=== PATIENT | female | born 1990 | race Caucasian/White ===

== ENCOUNTER 2022-09-29 04:20 | Inpatient (IN) | payer OTHER, MEDICAID, SELFPAY ==
[2022-09-29] VITALS (14 sets, daily range): BP systolic 110–146; BP diastolic 61–95; PULSE 57–108; RESP 6–35; TEMP 36.4–37.1; O2SAT 76–100; BMI 17.2
--- NOTE | 2022-09-29 | ECG_ITS ---
Test Reason : OVERDOSE Blood Pressure : / mmHG Vent. Rate : 094 BPM Atrial Rate : 094 BPM P-R Int : 146 ms QRS Dur : 092 ms QT Int : 340 ms P-R-T Axes : 061 070 018 degrees QTc Int : 425 ms Normal sinus rhythm with sinus arrhythmia Normal ECG No previous ECGs available Referred By: Cisco Carbajal Electronically Signed By:SUZE HOU MD
--- NOTE | ~2022-09-29 | XR_ITS ---
EXAMINATION: XR CHEST CLINICAL INFORMATION: Hypoxia after drug overdose. COMPARISON: None available. TECHNIQUE: Frontal view of the chest was obtained. FINDINGS: EKG wires overlie the chest. Lungs are well-inflated and clear. Trachea is midline in position. No interstitial disease, consolidation or mass. No pleural effusion or pneumothorax. Cardiac silhouette and pulmonary vessels are normal in size. The mediastinum and jarrett have normal contour. The visualized bones, and upper abdomen, are unremarkable. XR/XR chest 1V IMPRESSION: No evidence of pulmonary edema or aspiration pneumonia. No acute cardiopulmonary abnormality.
[2022-09-29 05:02] LABS: MANUAL DIFF FLAG NO
[2022-09-29 05:03] LABS: Basophils Percent Auto 0.4 % (0-2); Eosinophils Absolute Auto 0.1 X10*3/uL (0.0-0.4); Eosinophils Percent Auto 1.5 % (0-4); Hematocrit 38.1 % (37.0-47.0); Hemoglobin 12.5 g/dl (12.0-16.0); Imm Gran Abs Auto 0.02 X10*3/uL (0.00-0.03); Imm Gran Pct Auto 0.2 % (0.0-0.4); Lymphocytes Absolute Auto 3.6 X10*3/uL (1.2-4.9); Lymphocytes Percent Auto 44.6 % (20-40); Mean Corpuscular HGB Conc 32.8 g/dl (31.0-35.0); Mean Corpuscular Hemoglobin 30.8 pg (27.0-33.0); Mean Corpuscular Volume 93.8 fL (80.0-98.0); Mean Platelet Volume 9.8 fL (9.4-12.3); Monocytes Absolute Auto 0.4 X10*3/uL (0.1-1.2); Monocytes Percent Auto 5.4 % (2-11); Neutrophils Absolute Auto 3.9 x10*3/uL (2.0-8.3); Neutrophils Percent Auto 47.9 % (45-73); Platelet Count 196 X10*3/uL (160-400); Red Blood Count 4.06 X10*6/uL (4.20-5.50); Red Cell Distribution Width 12.8 % (11.0-16.0); White Blood Count 8.1 X10*3/uL (4.8-10.8)
[2022-09-29 05:22] LABS: Alanine Aminotransferase 16 U/L (0-31); Albumin Level 4.1 g/dL (3.5-5.0); Alkaline Phosphatase 51 U/L (39-117); Anion Gap 13 (12-20); Aspartate Amino Transferase 22 U/L (5-31); Bilirubin Total < 0.2 mg/dL (0.0-1.0); Blood Urea Nitrogen 12 mg/dL (9-16); Calcium 7.8 mg/dL (8.4-10.2); Carbon Dioxide 23 mmol/L (22-29); Chloride 111 mmol/L (96-108); Creatinine Clr Calc Pharmacy 75.5; Estimated Glomerular Filt Rate > 60; Ethanol 159 mg/dL; Glucose Random 111 mg/dL (60-115); Potassium 4.2 mmol/L (3.3-5.1); Sodium 143 mmol/L (135-145); Total Protein 6.1 g/dL (6.5-8.0)
[2022-09-29] MEDS: Naloxone HCl Nasal 4 MG SPRAY NOSTRILALT (07:10)
--- NOTE | 2022-09-29 07:10 | PC.NURSE ---
pt was found in the stretcher in room 22h, unresponsive, cyanotic and finger nail blue and shallow breaking at about 6 per min, pt given narcan 4mg intra nasally and moved to room 4, pt started to come around, and waking up. pt reports not taking anything additional then what she took prior to arrival to the ed, sniffed a bundle of heroin and was drinking alcohol. pt reports that she still wants to hill herself, sitter in place. zofran given because pt is vomiting from the narcan
--- NOTE | 2022-09-29 07:11 | PC.NURSE ---
Late entry: Pt. brought in by EMS after reported OD on fenanyl. Pt. changed over and 1:1 at bedside. Pt. vomited a moderate amount. Pt. ambulated with assist to bathroom and attempted to urinate, however, was unable to. Pt. back to stretcher and lying in bed asleep with continued 1:1.
--- NOTE | 2022-09-29 07:13 | ED.GENADULT ---
HPI - General Adult General Chief complaint: Psychiatric Symptoms Stated complaint: FOUND UNRESP IN CAR,OD,NARCAN GIVEN W/GOOD RESULT Source: RN notes reviewed and other (nurses) Mode of arrival: ambulatory Limitations: altered mental status History of Present Illness HPI narrative: Pulled out of a car for fentanyl OD, was in the hallway, hypoxic and cyanotic Onset (ago): hour(s) Severity: severe Relieving factors: none Treatments prior to arrival: none Related Data Allergies Allergy/AdvReac Type Severity Reaction Status Date / Time No Known Allergies Allergy Verified 09/29/22 07:21 Review of Systems Review of Systems: Yes Unobtainable due to mental status [facility] Social History Social History Alcohol intake: current Smoked in Last 30 Days: No Use of substances other than those prescribed or required for medical reasons: Yes Substance Use Type: Heroin Advance Directives: No Advance Directives Information Provided: No Physical Exam ED Vital Signs: Vital Signs - 24 hr 09/29/22 04:32 09/29/22 07:27 09/29/22 08:28 Temperature 97.6 F Pulse Rate 86 108 H 75 Respiratory Rate 18 8 L 9 L Blood Pressure 129/85 122/84 126/95 H Pulse Oximetry 97 100 97 Oxygen Delivery Method Room Air Nasal Cannula Room Air Oxygen Flow Rate 10 09/29/22 08:48 09/29/22 09:29 09/29/22 10:46 Temperature Pulse Rate 91 Respiratory Rate 6 L 8 L 10 L Blood Pressure 127/93 H 146/93 H Pulse Oximetry 99 76 L 100 Oxygen Delivery Method Room Air Room Air Room Air Oxygen Flow Rate 40 09/29/22 12:34 09/29/22 15:08 Temperature Pulse Rate 62 57 Respiratory Rate 8 L 16 Blood Pressure 126/90 H 132/91 H Pulse Oximetry 98 99 Oxygen Delivery Method Room Air Room Air Oxygen Flow Rate BMI result Body Mass Index 17.2 Const Other: unresponsive, cyanotic pinpoint pupils Limitations: altered mental status HENMT Head: Yes normal to inspection Ears: external ears normal General nose exam: Normal external nose present Mouth: Normal oral and palatal mucosa present and oropharynx normal Throat: Yes posterior oropharynx normal Eyes Other: pin point pupils Neck Neck: Yes normal visual inspection Chest Chest palpation & inspection: normal inspection of the chest Resp Other: decreased ventilations, but clear lungs Cardio Jugular venous distension: no JVD Rate: regular rate Rhythm: regular rhythm Heart sounds: S1 normal heart sound present and S2 normal heart sound present GI Inspection: Yes normal to inspection Palpation (GI): Soft to palpation, nontender and No hepatosplenomegaly present Auscultation: normal bowel sounds General: Yes no CVA tenderness Back/Spine/Pelvis Back: no CVA tenderness Skin General skin exam: no rashes or lesions noted Neuro Other: unrsponsive pin point pupils Extrem General: Yes normal to inspection Psych Appearance: grossly normal Course Reevaluation(s) Reevaluation #1: patient received intranasal narcan by nursing and now woke up Time: 07:21 Reevaluation #2: I spent 40 minutes of critical care, with interventions, assessments, speaking to patient, consultants, and family. Time: 13:09 Reevaluation #3: Found unresponsive hypoxic 30's received 12 mg of intranasal narcan and is now awake and alert Medications Administered Discontinued Medications Generic Name Dose Route Start Last Admin Trade Name Xuan PRN Reason Stop Dose Admin Naloxone HCl 4 mg 09/29/22 08:20 09/29/22 07:10 Naloxone Hcl Nasal 4 Mg Eola NOSTRILALT 09/29/22 08:21 4 mg ONCE ONE Administration Naloxone HCl 1 mg 09/29/22 08:45 09/29/22 08:48 Naloxone Hcl 2 Mg/2 Ml Syringe IVPUSH 09/29/22 08:46 1 mg ONCE ONE Administration Naloxone HCl 1 mg 09/29/22 10:44 09/29/22 10:42 Naloxone Hcl 2 Mg/2 Ml Syringe IVPUSH 09/29/22 10:45 1 mg ONCE ONE Administration Naloxone HCl 1 mg 09/29/22 13:00 09/29/22 13:04 Naloxone Hcl 2 Mg/2 Ml Syringe IVPUSH 09/29/22 13:01 1 mg ONCE ONE Administration Ondansetron HCl 4 mg 09/29/22 07:26 09/29/22 07:28 Ondansetron Hcl 4 Mg/2 Ml Vial IVPUSH 09/29/22 07:27 4 mg ONCE ONE Administration Ondansetron HCl 4 mg 09/29/22 08:56 09/29/22 09:09 Ondansetron Hcl 4 Mg/2 Ml Vial IVPUSH 09/29/22 08:57 4 mg ONCE ONE Administration Medical Decision Making Differential Diagnosis Differential Diagnoses: The differential diagnosis associated with the presentation includes (opiate overdose, suicidal ideation, depression) Admission/Observation Consideration of admission/observation: Escalation of care including admission/observation considered (medical and psychiatric admission was considered upon arrival) Consult Healthcare Provider Management of the patient was discussed with: [employer]ivatives Trader (Discussed with Dr. Frazier ICU about narcan drip) Lab Data MDM Lab Attestation statement: I reviewed the patient's lab results. 09/29/22 04:58 09/29/22 04:58 Labs: Lab Results 09/29/22 09/29/22 09/29/22 Range/Units 04:58 04:58 13:08 WBC 8.1 (4.8-10.8) X10*3/uL RBC 4.06 L (4.20-5.50) X10*6/uL Hgb 12.5 (12.0-16.0) g/dl Hct 38.1 (37.0-47.0) % MCV 93.8 (80.0-98.0) fL MCH 30.8 (27.0-33.0) pg MCHC 32.8 (31.0-35.0) g/dl RDW 12.8 (11.0-16.0) % Plt Count 196 (160-400) X10*3/uL MPV 9.8 (9.4-12.3) fL Immature Gran % (Auto) 0.2 (0.0-0.4) % Neut % (Auto) 47.9 (45-73) % Lymph % (Auto) 44.6 H (20-40) % [place] % (Auto) 5.4 (2-11) % Eos % (Auto) 1.5 (0-4) % Baso % (Auto) 0.4 (0-2) % Lymph # (Auto) 3.6 (1.2-4.9) X10*3/uL [place] # (Auto) 0.4 (0.1-1.2) X10*3/uL Eos # (Auto) 0.1 (0.0-0.4) X10*3/uL Baso # (Auto) 0.0 (0.0-0.2) X10*3/uL Abs Immat Gran (auto) 0.02 (0.00-0.03) X10*3/uL Absolute Neuts (auto) 3.9 (2.0-8.3) x10*3/uL Absolute Nucleated RBC 0.000 (0.0-0.012) X10*3/uL Nucleated RBC % (auto) 0.0 (0.0-0.2) /100WBC Sodium 143 (135-145) mmol/L Potassium 4.2 (3.3-5.1) mmol/L Chloride 111 H (96-108) mmol/L Carbon Dioxide 23 (22-29) mmol/L Anion Gap 13 (12-20) BUN 12 (9-16) mg/dL Creatinine 0.78 (0.5-1.4) mg/dL Estim Creat Clear Calc 75.5 Estimated GFR > 60 Random Glucose 111 (60-115) mg/dL Calcium 7.8 L (8.4-10.2) mg/dL Total Bilirubin < 0.2 (0.0-1.0) mg/dL AST 22 (5-31) U/L ALT 16 (0-31) U/L Alkaline Phosphatase 51 (39-117) U/L Total Protein 6.1 L (6.5-8.0) g/dL Albumin 4.1 (3.5-5.0) g/dL Urine Opiates Screen POSITIVE H (Not Detect) Urine Fentanyl Screen POSITIVE H (Not Detect) Ur Barbiturates Screen Not Detected (Not Detect) Ur Phencyclidine Scrn Not Detected (Not Detect) Ur Amphetamines Screen Not Detected (Not Detect) U Benzodiazepines Scrn Not Detected (Not Detect) Urine Cocaine Screen POSITIVE H (Not Detect) U Marijuana (THC) Screen POSITIVE H (Not Detect) Ethyl Alcohol 159 mg/dL COVID-19 (SRAVAN) (Negative) COVID-19 Clin Com 09/29/22 Range/Units 15:22 WBC (4.8-10.8) X10*3/uL RBC (4.20-5.50) X10*6/uL Hgb (12.0-16.0) g/dl Hct (37.0-47.0) % MCV (80.0-98.0) fL MCH (27.0-33.0) pg MCHC (31.0-35.0) g/dl RDW (11.0-16.0) % Plt Count (160-400) X10*3/uL MPV (9.4-12.3) fL Immature Gran % (Auto) (0.0-0.4) % Neut % (Auto) (45-73) % Lymph % (Auto) (20-40) % [place] % (Auto) (2-11) % Eos % (Auto) (0-4) % Baso % (Auto) (0-2) % Lymph # (Auto) (1.2-4.9) X10*3/uL [place] # (Auto) (0.1-1.2) X10*3/uL Eos # (Auto) (0.0-0.4) X10*3/uL Baso # (Auto) (0.0-0.2) X10*3/uL Abs Immat Gran (auto) (0.00-0.03) X10*3/uL Absolute Neuts (auto) (2.0-8.3) x10*3/uL Absolute Nucleated RBC (0.0-0.012) X10*3/uL Nucleated RBC % (auto) (0.0-0.2) /100WBC Sodium (135-145) mmol/L Potassium (3.3-5.1) mmol/L Chloride (96-108) mmol/L Carbon Dioxide (22-29) mmol/L Anion Gap (12-20) BUN (9-16) mg/dL Creatinine (0.5-1.4) mg/dL Estim Creat Clear Calc Estimated GFR Random Glucose (60-115) mg/dL Calcium (8.4-10.2) mg/dL Total Bilirubin (0.0-1.0) mg/dL AST (5-31) U/L ALT (0-31) U/L Alkaline Phosphatase (39-117) U/L Total Protein (6.5-8.0) g/dL Albumin (3.5-5.0) g/dL Urine Opiates Screen (Not Detect) Urine Fentanyl Screen (Not Detect) Ur Barbiturates Screen (Not Detect) Ur Phencyclidine Scrn (Not Detect) Ur Amphetamines Screen (Not Detect) U Benzodiazepines Scrn (Not Detect) Urine Cocaine Screen (Not Detect) U Marijuana (THC) Screen (Not Detect) Ethyl Alcohol mg/dL COVID-19 (SRAVAN) Negative (Negative) COVID-19 Clin Com See Note Independent Interpretation I performed an independent interpretation of an: Plain X-Ray (no infiltrate) Discharge Plan Discharge Clinical Impression: Intentional opiate overdose, Suicidal ideation Patient Disposition: Admitted As Inpatient Interventions: Mono-Suicide Risk Severity Scale Last Done: 09/29/22 15:00
[2022-09-29] MEDS: ondansetron HCL 4 MG/2 ML VIAL IVPUSH ×3 (07:28→19:33)
--- NOTE | 2022-09-29 08:27 | PC.NURSE ---
pt's oxygen level dropped again and respirations dropped down to 9, pt becoming very drowsy but is able to stay awake talking to the pct/sitter at bedside
[2022-09-29] MEDS: Naloxone HCl 2 MG/2 ML SYRINGE 1 MG IVPUSH ×3 (08:48→13:04)
--- NOTE | 2022-09-29 08:48 | PC.NURSE ---
pt unable to stay awake, respirations continuos on lowering, now at 6respirations per min, cap at 40
--- NOTE | 2022-09-29 09:29 | PC.NURSE ---
pt oxygen level dropped again to 76% on room air pt is prety awake at this time, respirations at about 6-8, hr rate at 97 normal sinus
--- NOTE | 2022-09-29 10:54 | PC.NURSE ---
Patient falling asleep while speaking with staff, also during these times patient's breath is slowing. Provider made aware and a dose of Narcan was ordered and given. Patient is now sitting on stretcher with staff at bedside.
--- NOTE | 2022-09-29 10:59 | PC.NURSE ---
Patient asking for staff to just let me patient says that she doesn't feel that when she gets out of the hospital that she will be able to give herself the life that she wants to live. This nurse spoke with the patient about these feelings and this seems to have helped the patient. She states that she has never taken a whole bundle in her life never mind all in one sitting stating I must really have been trying to kill myself. Patient maintaining consciousness at this time, calm and cooperative with staff.
--- NOTE | 2022-09-29 12:42 | PC.NURSE ---
pt still unable to voide, this rn performed a bladder scan because this pt has not voided since 0700 when this rn took over on the pt's care, bladder scan showed 808 ml, md aware and plan to straight cath the pt pt is still very drowsy at times but easily arousable to voice command, respirations continuos on varying from 12-6, bp holding
--- NOTE | 2022-09-29 13:10 | PC.NURSE ---
Patient straight cathed for 700ml. during the catherization patient became unconscious and desated. Oxygen increased for patient and patient was sat up. Narcan ordered and administered. Patient sitting on stretcher at this time with staff at bedside.
[2022-09-29 13:34] LABS: Amphetamine Screen Urine Not Detected (Not Detect); Barbiturates, Urine Not Detected (Not Detect); Benzodiazepines Screen Urine Not Detected (Not Detect); Cannabinoid Screen Urine POSITIVE (Not Detect); Cocaine Screen Urine POSITIVE (Not Detect); Fentanyl, urine POSITIVE (Not Detect); Opiate Screen Urine POSITIVE (Not Detect); Phencyclidine Screen Urine Not Detected (Not Detect)
--- NOTE | 2022-09-29 15:10 | PC.NURSE ---
pt finally is medically stable, respirations improved and stable holding at 14-18 and pt is staying awake without being prompted to do so, vs stable report given to hollie ortega and pt moved to n
--- NOTE | 2022-09-29 15:12 | PC.NURSE ---
assumed care of pt at 1500, pt reporting intentional overdose, but denies any SI/HI at this time.
[2022-09-29 15:40] LABS: COVID-19 Test Negative (Negative); IDNOW Serial# BCCEAD1C
--- NOTE | 2022-09-29 16:24 | PC.NURSE ---
pt sleeping in behavioral pod, on safety check pt was found unresponsive, lips blue tinged. HR 119, 21% O2 on monitor. IN narcan administered by provider, pt moved back into main ED. pt transferred back into main ED.
--- NOTE | 2022-09-29 16:39 | PC.NURSE ---
Patient became unresponsive in pod. Patient placed on stretcher and given O2, nasal Narcan and brought to room 4. Narcan effective patient on stretcher shiver, given warm blanket. Patient having dry heaves; provider made aware and no new orders at this time. Patient is sinus tachy on the monitor, patient is alert and speaking with this nurse.
--- NOTE | 2022-09-29 16:42 | MHC.CARE ---
CARE team attempted to meet, however she became unresponsive and code was called, additional Jarad given. Pt to be medically admitted per ED physician Dr. Carbajal.
--- NOTE | 2022-09-29 17:10 | PM.CCHP ---
History of Present Illness Date of Service: 09/29/22 Chief Complaint: intentional polysubstance overdose 32-year-old lady admitted on 09/29/2022 with intentional polysubstance overdose now requiring Narcan drip to maintain normal oximetry. Review of Systems Constitutional: Constitutional: Denies daytime sleepiness, Denies excessive sweating, Denies fatigue, Denies fever(s), Denies lethargy, Denies malaise, Denies night sweats, Denies snoring and Denies weight loss Eyes: Eyes: Denies blurry vision and Denies itchy eyes ENT: Denies nasal congestion, Denies post nasal drip, Denies sinus pain, Denies sinus pressure and Denies other ( Thrush) Cardiovascular: Cardiovascular: Denies chest pain, Denies pedal edema, Denies dyspnea, Denies orthopnea and Denies paroxysmal nocturnal dyspnea Respiratory: Respiratory: Denies cough, Denies hemoptysis, Denies excessive phlegm production, Denies dyspnea, Denies snoring and Denies wheezing Gastrointestinal: Gastrointestinal: Denies abdominal pain and Denies heartburn Musculoskeletal: Musculoskeletal: Denies myalgias, Denies arthralgias and Denies joint swelling Integumentary/Breasts: Skin/Breast: Denies rash Neurologic: Denies memory loss and Denies seizure-like activity Psychiatric: Psychiatric: Denies abnormal sleep pattern, Denies anxiety and Denies memory loss Endocrine: Endocrine: Denies excessive sweating, Denies fatigue and Denies heat intolerance Hematologic/Lymphatic: Hematologic/Lymphatic: Denies easy bruising Allergic/Immunologic: Allergic/Immunologic: Denies itchy eyes, Denies seasonal rhinorrhea and Denies wheezing PMFSH Social History Social History Alcohol intake: current Smoked in Last 30 Days: No Use of substances other than those prescribed or required for medical reasons: Yes Substance Use Type: Heroin Advance Directives: No Advance Directives Information Provided: No Meds Allergies Allergy/AdvReac Type Severity Reaction Status Date / Time No Known Allergies Allergy Verified 09/29/22 07:21 Active Medications: Current Medications Enoxaparin Sodium (Enoxaparin Sodium 40 Mg/0.4 Ml Syringe) 40 mg SUBCUT Q24H ADRIEL Naloxone HCl 5 mg/ Dextrose 100 mls @ 40 mls/hr IV .Q2H30M [facility] Home Medications Medication Instructions Recorded Confirmed Last Taken Type naloxone 4 mg/actuation nasal spray 1 spray intranasal DAILY 09/29/22 09/29/22 Unknown History Physical Exam Vital Signs: Vital Signs: Last Vital Signs Temp 97.6 F 09/29/22 04:32 Pulse 57 09/29/22 15:08 Resp 16 09/29/22 15:08 BP 132/91 H 09/29/22 15:08 Pulse Ox 99 09/29/22 15:08 O2 Del Method 09/29/22 15:08 O2 Flow Rate 40 09/29/22 08:48 BMI result Body Mass Index 17.2 Const: General: no acute distress and lethargic ( Intermittently anxious) Nutritional Appearance: not obese Orientation/consciousness: lethargic ( Intermittently anxious) and Other orientation findings ( oriented) HEENT: Head: Yes atraumatic Mouth: no other ( thrush) Throat: No postnasal drainage Eyes: General: appearance normal, both eyes and all related structures Sclerae: sclerae normal EOM: EOMs intact bilaterally Neck: Neck: Yes supple Lymphatic: no lymphadenopathy noted Resp: Effort & Inspection: normal respiratory effort and no use of accessory muscles Auscultation: clear to auscultation bilaterally Cardio: Rate: regular rate Rhythm: regular rhythm Heart sounds: no gallops, no murmurs and no rubs GI: Palpation (GI): Soft to palpation and Other GI palpation findings present ( nontender) Skin: General skin exam: other ( warm) Rashes: no rashes Extrem: General: No clubbing, No cyanosis and No edema Results Labs 09/29/22 04:58 09/29/22 04:58 Labs: Laboratory Results - last 24 hr 09/29/22 09/29/22 09/29/22 04:58 04:58 13:08 MCV 93.8 MCH 30.8 MCHC 32.8 RDW 12.8 Plt Count 196 MPV 9.8 Immature Gran % (Auto) 0.2 Neut % (Auto) 47.9 Lymph % (Auto) 44.6 H [place] % (Auto) 5.4 Eos % (Auto) 1.5 Baso % (Auto) 0.4 Lymph # (Auto) 3.6 [place] # (Auto) 0.4 Eos # (Auto) 0.1 Baso # (Auto) 0.0 Abs Immat Gran (auto) 0.02 Absolute Neuts (auto) 3.9 Absolute Nucleated RBC 0.000 Nucleated RBC % (auto) 0.0 Anion Gap 13 Estim Creat Clear Calc 75.5 Estimated GFR > 60 Random Glucose 111 Calcium 7.8 L Total Bilirubin < 0.2 AST 22 ALT 16 Alkaline Phosphatase 51 Total Protein 6.1 L Albumin 4.1 Urine Opiates Screen POSITIVE H Urine Fentanyl Screen POSITIVE H Ur Barbiturates Screen Not Detected Ur Phencyclidine Scrn Not Detected Ur Amphetamines Screen Not Detected U Benzodiazepines Scrn Not Detected Urine Cocaine Screen POSITIVE H U Marijuana (THC) Screen POSITIVE H Ethyl Alcohol 159 COVID-19 (SRAVAN) COVID-19 Clin Com 09/29/22 15:22 MCV MCH MCHC RDW Plt Count MPV Immature Gran % (Auto) Neut % (Auto) Lymph % (Auto) [place] % (Auto) Eos % (Auto) Baso % (Auto) Lymph # (Auto) [place] # (Auto) Eos # (Auto) Baso # (Auto) Abs Immat Gran (auto) Absolute Neuts (auto) Absolute Nucleated RBC Nucleated RBC % (auto) Anion Gap Estim Creat Clear Calc Estimated GFR Random Glucose Calcium Total Bilirubin AST ALT Alkaline Phosphatase Total Protein Albumin Urine Opiates Screen Urine Fentanyl Screen Ur Barbiturates Screen Ur Phencyclidine Scrn Ur Amphetamines Screen U Benzodiazepines Scrn Urine Cocaine Screen U Marijuana (THC) Screen Ethyl Alcohol COVID-19 (SRAVAN) Negative COVID-19 Clin Com See Note Imaging Radiologist's Impressions: Impressions Chest X-Ray 09/29/22 09:42 IMPRESSION: No evidence of pulmonary edema or aspiration pneumonia. No acute cardiopulmonary abnormality. Assessment and Plan (1) Polysubstance overdose: Status: Acute (2) Intentional opiate overdose: Status: Acute (3) Suicidal ideation: Status: Acute Plan Assessment: 32-year-old lady admitted with intentional polysubstance overdose now requiring narcan drip and monitoring in the intensive care unit. Plan: Neuro: Narcan drip, titrate off as tolerated. Monitor respiratory status. Cardiac: No acute issues. Pulmonary: No acute issues. Renal: No acute issues. Endo: No acute issues. GI: No acute issues. ID: No acute issues Heme/Onc: No acute issues. Psych: Three cell ideation, one-to-one observation, psychiatry evaluation after respiratory status stabilizes. Miscellaneous: No acute issues. Prophylaxis: Lovenox Diet: regular Critical care time spent: 30 minutes Time Spent With Patient Time: Total time managing care of this patient today ____ minutes.
[2022-09-29] MEDS: Naloxone HCl 5 MG in Dextrose 5 % 95 ML 40 MG IV (17:55)
[2022-09-29] MEDS: Enoxaparin Sodium 40 MG/0.4 ML SYRINGE SUBCUT (18:39)
--- NOTE | 2022-09-29 19:18 | PC.NURSE ---
PATIENT ADMITTED TO ICU FROM ER, ACCOMPANIED BY RN X2. PATIENT ADMISSION CHECKLIST AND ASSESSMENT COMPLETED. PATIENT POSITIONED SAFELY IN BED WITH CALL REBOLLAR WITHIN REACH.
[2022-09-29] MEDS: Naloxone HCl 5 MG in Dextrose 5 % 95 ML 20 MG IV (20:14)
[2022-09-30] VITALS (15 sets, daily range): BP systolic 100–142; BP diastolic 57–94; PULSE 55–90; RESP 9–20; TEMP 36.8–37.1; O2SAT 96–100; BMI 21.7
--- NOTE | 2022-09-30 02:26 | PC.NURSE ---
Addendum entered by Morris Knapp RN 09/30/22 05:26: NAUSEOUS THIS AM...ZOFRAN 4MG IV GIVEN WITH RELIEF OF NAUSEA Addendum entered by Morris Knapp RN 09/30/22 02:30: PER SHIFT REPORT PATIENT'S BOYFRIEND BRITNI PAREKH NOT ALLOWED TO VISIT PER SECURITY AND PATIENT'S PRIOR REQUEST...NEW CONTACT= BRITNEY IMAN--TELEPHONE # [phone] Original Note: CARE ASSUMED 23;15..REMAINS OFF NARCAN DRIP SINCE 22:30..AWAKE..ALERT..ORIENTED X3..SPEECH CLEAR..REPOSITIONS SELF AD-LITZY IN BED..NSR..NO ECTOPY..BP STABLE..RESPIRATIONS EASY WITH O2 2 L/M..SAO2 98-100%...1:1 SITTER PRESENT D/T PRIOR SI STATEMENTS R/T OVERDOSE..RESTFUL..CALM AND CO-OPERATIVE AT PRESENT
[2022-09-30 05:14] LABS: VBG Base Excess -2.3 mmol/L; VBG HCO3 21 mmol/L (22-26); VBG pCO2 33 mmHg; VBG pH 7.41 (7.32-7.43); VBG pO2 91 mmHg
[2022-09-30] MEDS: ondansetron HCL 4 MG/2 ML VIAL IVPUSH (05:25)
[2022-09-30 05:34] LABS: MANUAL DIFF FLAG NO
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
[2022-09-30 06:01] LABS: Basophils Percent Auto 0.2 % (0-2); Hematocrit 37.2 % (37.0-47.0); Hemoglobin 12.4 g/dl (12.0-16.0); Imm Gran Abs Auto 0.03 X10*3/uL (0.00-0.03); Imm Gran Pct Auto 0.2 % (0.0-0.4); Lymphocytes Absolute Auto 2.1 X10*3/uL (1.2-4.9); Lymphocytes Percent Auto 15.7 % (20-40); Mean Corpuscular HGB Conc 33.3 g/dl (31.0-35.0); Mean Corpuscular Hemoglobin 30.8 pg (27.0-33.0); Mean Corpuscular Volume 92.3 fL (80.0-98.0); Mean Platelet Volume 10.7 fL (9.4-12.3); Monocytes Absolute Auto 0.9 X10*3/uL (0.1-1.2); Monocytes Percent Auto 6.5 % (2-11); Neutrophils Absolute Auto 10.5 x10*3/uL (2.0-8.3); Neutrophils Percent Auto 77.4 % (45-73); Platelet Count 192 X10*3/uL (160-400); Red Blood Count 4.03 X10*6/uL (4.20-5.50); Red Cell Distribution Width 13.1 % (11.0-16.0); White Blood Count 13.6 X10*3/uL (4.8-10.8)
[2022-09-30 06:16] LABS: Alanine Aminotransferase 35 U/L (0-31); Alkaline Phosphatase 49 U/L (39-117); Anion Gap 15 (12-20); Aspartate Amino Transferase 31 U/L (5-31); Bilirubin Total 0.4 mg/dL (0.0-1.0); Blood Urea Nitrogen 13 mg/dL (9-16); Calcium 8.8 mg/dL (8.4-10.2); Carbon Dioxide 22 mmol/L (22-29); Chloride 106 mmol/L (96-108); Estimated Glomerular Filt Rate > 60; Glucose Random 79 mg/dL (60-115); Magnesium 2.1 mg/dL (1.6-2.6); Potassium 3.9 mmol/L (3.3-5.1); Sodium 139 mmol/L (135-145)
[2022-09-30 08:46] LABS: Venous Blood Gas Refer to POC result
--- NOTE | 2022-09-30 09:32 | MHC.RECOVRN ---
Addiction Medicine received consult for opioid use and interest in ATS. Chart reviewed, discussed with CARE Team. Due to intentional overdose, pt must meet with CARE Team to determine dispo. Addiction Medicine consult deferred at this time.
[2022-09-30] MEDS: Calcium Carbonate 750 MG TAB.CHEW PO (09:54)
--- NOTE | 2022-09-30 10:14 | MHC.CM.PN ---
CM MET WITH PT AT BEDSIDE. HAS 1:1 SITTER. PT LIVES IN AN APT WITH S/O, PER PT, WILL RETURN THERE AFTER HOSPITALIZATION. 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 NO HCP BUT WILL CONSIDER DOING ONE WHILE HERE. NO COVID VAX. HAS NEW PCP DR. BROWN, NOT ESTABLISHED YET. DP: HOME, RESUME OUTPATIENT SERVICES WITH [employer]. WILL NEED [facility] FOR TRANSPORT HOME. CM WILL CONTINUE TO FOLLOW.
--- NOTE | 2022-09-30 14:56 | P.PNIM_ITS ---
Subjective Subjective Date of Service: 09/30/22 Interval History: Feels better denies any suicidal thoughts Sitter at bedside No signs of withdrawal no other overnight events Review of Systems Review of Systems: Yes all other systems are reviewed and are negative Physical Exam Vital Signs: Vital Signs: Last Vital Signs Temp 98.2 F 09/30/22 11:59 Pulse 55 09/30/22 11:59 Resp 20 09/30/22 11:59 BP 121/78 09/30/22 11:59 Pulse Ox 97 09/30/22 11:59 O2 Del Method 09/30/22 11:59 O2 Flow Rate 2 09/30/22 03:00 BMI result Body Mass Index 21.7 Const: Other: Constitutional : Awake, interactive, not in distress Neck : Normal inspection, Supple Cardiovascular : RRR, no JVP, no lower extremity edema Respiratory : good bilateral air entry, no crackles, wheezes or rhonchi Gastrointestinal: soft, lax, Normal bowel sounds, Non tender Skin : Warm, Dry Neurological : Alert & oriented x3, No focal deficit Objective Data Active Medications Calcium Carbonate (Calcium Carbonate 750 Mg Tab.Chew) 750 mg PO Q6H PRN PRN Reason: Dyspepsia Last Admin: 09/30/22 09:54 Dose: 750 mg Documented By: PRITI Enoxaparin Sodium (Enoxaparin Sodium 40 Mg/0.4 Ml Syringe) 40 mg SUBCUT Q24H [facility] Last Admin: 09/29/22 18:39 Dose: 40 mg Documented By: SHRAVAN Ondansetron HCl (Ondansetron Hcl 4 Mg/2 Ml Vial) 4 mg IVPUSH Q8H PRN PRN Reason: Nausea Labs 09/30/22 05:10 09/30/22 05:10 Labs: Laboratory Results - last 24 hr 09/29/22 09/30/22 09/30/22 15:22 05:07 05:10 MCV 92.3 MCH 30.8 MCHC 33.3 RDW 13.1 Plt Count 192 MPV 10.7 Immature Gran % (Auto) 0.2 Neut % (Auto) 77.4 H Lymph % (Auto) 15.7 L [place] % (Auto) 6.5 Eos % (Auto) 0.0 Baso % (Auto) 0.2 Lymph # (Auto) 2.1 [place] # (Auto) 0.9 Eos # (Auto) 0.0 Baso # (Auto) 0.0 Abs Immat Gran (auto) 0.03 Absolute Neuts (auto) 10.5 H Absolute Nucleated RBC 0.000 Nucleated RBC % (auto) 0.0 VBG pH 7.41 VBG pCO2 33 VBG pO2 91 VBG HCO3 21 L VBG O2 Saturation 99.0 VBG Base Excess -2.3 Anion Gap Estim Creat Clear Calc Estimated GFR Random Glucose Calcium Phosphorus Magnesium Total Bilirubin AST ALT Alkaline Phosphatase Total Protein Albumin COVID-19 (SRAVAN) Negative COVID-19 Clin Com See Note 09/30/22 05:10 MCV MCH MCHC RDW Plt Count MPV Immature Gran % (Auto) Neut % (Auto) Lymph % (Auto) [place] % (Auto) Eos % (Auto) Baso % (Auto) Lymph # (Auto) [place] # (Auto) Eos # (Auto) Baso # (Auto) Abs Immat Gran (auto) Absolute Neuts (auto) Absolute Nucleated RBC Nucleated RBC % (auto) VBG pH VBG pCO2 VBG pO2 VBG HCO3 VBG O2 Saturation VBG Base Excess Anion Gap 15 Estim Creat Clear Calc 100.0 Estimated GFR > 60 Random Glucose 79 Calcium 8.8 D Phosphorus 3.0 Magnesium 2.1 Total Bilirubin 0.4 AST 31 ALT 35 H Alkaline Phosphatase 49 Total Protein 6.0 L Albumin 4.0 COVID-19 (SRAVAN) COVID-19 Clin Com Assessment and Plan (1) Intentional opiate overdose: Status: Acute (2) Suicidal ideation: Status: Acute Plan A 32 years old lady with PMH of substance abuse presented with overdose with concerns over suicidal thoughts. admitted to ICU for narcan drip. Drug abuse and overdose recovered, Narcan drip DC'd Addiction team following no withdrawal symptoms reported, monitor Suicidal ideation patient denies any ideas at this point waiting Care team eval One-one obs DVT PPx early ambulation Patient needs to stay overnight in hospital pending safe discharge plan and care team eval Time Spent With Patient Time: Total time managing care of this patient today ____ minutes. Quality Stroke Does the patient have a stroke diagnosis?: No VTE Prior VTE?: No VTE Risk Level:: Medical - moderate - high VTE Device Contraindication: Treatment Not Indicated VTE Drug Contraindication: N/A - Med Ordered
[2022-09-30] MEDS: Enoxaparin Sodium 40 MG/0.4 ML SYRINGE SUBCUT (17:41)
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
== END 2022-09-30 23:10 | DRG 817 ==
LOC: HO.ED 16:37 → HO.EDOVER 17:04 → HO.ICU 17:06 → HO.IMC 09-30 09:08
PROVIDERS: Admitting Provider Internal Medicine Pulmonary Disease; Emergency Provider Emergency Medicine; PCP Internal Medicine; Visit Provider Student in an Organized Health Care Education/Training Program
DX: T50.7X2A Poisoning by analeptics and opioid receptor antagonists, intentional self-harm, initial encounter (principal); F10.20 Alcohol dependence, uncomplicated; F19.10 Other psychoactive substance abuse, uncomplicated; F32.A Depression, unspecified; Y90.6 Blood alcohol level of 120-199 mg/100 ml; Z20.822 Contact with and (suspected) exposure to COVID-19; Z87.891 Personal history of nicotine dependence; Z79.899 Other long term (current) drug therapy
CPT/HCPCS: 36415; 71045; 80053; 80307; 82077; 82803; 83735; 84100; 85025; 87635; 93005; 99285; J1650; J2405; S9485

== ENCOUNTER 2022-09-30 22:10 | Inpatient (IN) | payer OTHER, SELFPAY ==
[2022-10-01] MEDS: Acetaminophen 325 MG TABLET 650 MG PO ×2 (01:35→14:49)
[2022-10-01] MEDS: hydrOXYzine HCL 25 MG TABLET PO (01:35)
[2022-10-01] MEDS: traZODone HCL 50 MG TABLET PO ×3 (01:36→21:46)
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
[2022-10-01 08:54] VITALS: BP 123/92; PULSE 77; RESP 16; TEMP 36.4; O2SAT 99
[2022-10-01 08:57] LABS: Alanine Aminotransferase 38 U/L (0-31); Albumin Level 4.2 g/dL (3.5-5.0); Alkaline Phosphatase 51 U/L (39-117); Anion Gap 14 (12-20); Aspartate Amino Transferase 26 U/L (5-31); Bilirubin Total 0.7 mg/dL (0.0-1.0); Blood Urea Nitrogen 16 mg/dL (9-16); Calcium 9.1 mg/dL (8.4-10.2); Carbon Dioxide 29 mmol/L (22-29); Chloride 101 mmol/L (96-108); Cholesterol 204 mg/dL; Estimated Glomerular Filt Rate > 60; Glucose Fasting 97 mg/dL (60-99); HDL Cholesterol 63 mg/dL; LDL Cholesterol Calculated 106 mg/dl; Potassium 3.4 mmol/L (3.3-5.1); Sodium 141 mmol/L (135-145); Total Protein 6.4 g/dL (6.5-8.0); Triglycerides 175 mg/dL
--- NOTE | 2022-10-01 10:37 | MHC.RECOVRN ---
Addiction Medicine received consult for opioid use and interest in ATS. Chart reviewed, discussed with Dr. Kemp. Due to intentional overdose and M5 admission, pt will complete acute detox while at [facility]. ACS to be reconsulted if needed.
[2022-10-01 10:46] LABS: Hematocrit 38.3 % (37.0-47.0); Hemoglobin 13.4 g/dl (12.0-16.0); Mean Corpuscular Hemoglobin 31.5 pg (27.0-33.0); Mean Corpuscular Volume 90.1 fL (80.0-98.0); Mean Platelet Volume 10.2 fL (9.4-12.3); Platelet Count 200 X10*3/uL (160-400); Red Blood Count 4.25 X10*6/uL (4.20-5.50); Red Cell Distribution Width 12.3 % (11.0-16.0); White Blood Count 7.6 X10*3/uL (4.8-10.8)
[2022-10-01 10:56] LABS: Anion Gap 11 (12-20); Blood Urea Nitrogen 15 mg/dL (9-16); Calcium 8.5 mg/dL (8.4-10.2); Carbon Dioxide 28 mmol/L (22-29); Chloride 103 mmol/L (96-108); Estimated Glomerular Filt Rate > 60; Glucose Random 145 mg/dL (60-115); Potassium 3.3 mmol/L (3.3-5.1); Sodium 139 mmol/L (135-145)
--- NOTE | 2022-10-01 11:23 | P.HPPS_ITS ---
HPI Date of Service: 10/01/22 Chief Complaint: SI Sources of Information: patient interviewed, chart reviewed and crisis/core team assessment reviewed HPI Subjective Notes: Chaidez Warning and Conditional Voluntary Narrative: Patient is a 32-year-old female with history of depression, anxiety opioid use disorder and polysubstance abuse who presents for intentional overdose in the face of worsening depression, requiring medical admission and Narcan drip. Patient currently in significant discomfort from withdrawal symptoms and politely asked that discussion be kept short. She explains that depression has gotten much worse this past winter; she reports trying to resist opiates but ended up using daily starting this past June, briefly got sober and on to Suboxone for a while but this did not last. She was carrying her boyfriend's opiates with her, trying to help him limit his use however the combination of her depression at its proximity resulted in relapse. Patient reports that her depression became overwhelming and so she intentionally overdosed on boyfriend's opiates. Patient says she has been limiting her alcohol use to 1 or 2 drinks a day; intermittently uses crack cocaine. Patient says she is currently not suicidal and glad she is alive but feels very vulnerable to relapse and decompensation. Patient is currently ambivalent about whether not to get back on Suboxone. Past Psychiatric History: Patient declined to discuss at this time Medical Evaluation Reviewed: Yes [facility] Medical History (Updated 10/01/22 @ 14:46 by Cj Kemp MD) MDD (major depressive disorder), recurrent episode, severe Opioid use disorder Family History: Deferred; patient declined to discuss at this time Social History: Living with her boyfriend who is dependent on opiates Substance History: Started substance abuse as a teenager; sober for a couple years in her 20s and then sober again for 2 years starting 2019 to 2021 Trauma History: Deferred for now Diagnostics Vital Signs (24Hr): Vital Signs - 24 hr 10/01/22 08:54 Temperature 97.5 F Pulse Rate 77 Respiratory Rate 16 Blood Pressure 123/92 H Pulse Oximetry 99 Oxygen Delivery Method Room Air Labs 10/01/22 10:36 10/01/22 10:36 Labs: Laboratory Results - last 48 hr 10/01/22 10/01/22 10/01/22 08:32 10:36 10:36 WBC 7.6 RBC 4.25 Hgb 13.4 Hct 38.3 MCV 90.1 MCH 31.5 MCHC 35.0 RDW 12.3 Plt Count 200 MPV 10.2 Absolute Nucleated RBC 0.000 Nucleated RBC % (auto) 0.0 Sodium 141 139 Potassium 3.4 3.3 Chloride 101 103 Carbon Dioxide 29 28 Anion Gap 14 11 L BUN 16 15 Creatinine 0.85 0.77 Estim Creat Clear Calc TNP TNP Estimated GFR > 60 > 60 Random Glucose 145 H Fasting Glucose 97 Calcium 9.1 8.5 D Total Bilirubin 0.7 AST 26 ALT 38 H Alkaline Phosphatase 51 Total Protein 6.4 L Albumin 4.2 Triglycerides 175 Cholesterol 204 LDL Cholesterol, Calc 106 HDL Cholesterol 63 Meds/Allergies Meds Home Medications Medication Instructions Recorded Confirmed Type naloxone 4 mg/actuation nasal spray 1 spray intranasal DAILY 09/29/22 09/29/22 History Allergies Allergies Allergy/AdvReac Type Severity Reaction Status Date / Time No Known Allergies Allergy Verified 09/29/22 07:21 Mental Status Exam Mental Status Exam Narrative: Pt is alert and oriented; behavior is polite, cooperative, in physical discomfort from opiate withdrawal and calm; dressed in hospital attire with unkempt hair; mood is described as depressed and affect congruent, tearful, downcast; eye contact limited; Speech is normal rate, volume and prosody and not pressured; psychomotor retardation present; thought process is organized and goal directed; Thought content is on dealing with depression, withdrawal; otherwise pertinent to relevant topics and without any delusional content, paranoid ideations or grandiosity; denies any SI/HI. There is no evidence of perceptual disturbance. Patients insight and judgment are impaired Assessment & Plan Assessment & Plan (1) MDD (major depressive disorder), recurrent episode, severe: Status: Acute Code(s): F33.2 - Major depressive disorder, recurrent severe without psychotic features (2) Opioid use disorder: Status: Acute Code(s): F11.90 - Opioid use, unspecified, uncomplicated Plan Patient is a 32-year-old female with history of depression, anxiety opioid use disorder and polysubstance abuse who presents for intentional overdose in the face of worsening depression, requiring medical admission and Narcan drip. Interaction kept short since patient was in significant discomfort from opiate withdrawal. She is currently ambivalent about whether not to get on Suboxone as a maintenance medication. Agrees to comfort measures for now. Will readdress psychiatric history and further assess current episode once patient is more able to talk. Plan: CV Q 15 minute checks Start comfort medications (clonidine, Flexeril, Bentyl, Imodium) Start gabapentin 300 mg t.i.d. for help with withdrawal Added Suboxone 2/0.5 mg t.i.d. p.r.n. for withdrawal symptoms (may take doses within 20 minutes of each other) Reassess when patient is in less discomfort Patient educated on: diagnosis, medication risk/benefits, substance abuse and therapeutic strategies Informed Consent: understands Reason for continued inpatient stay Substantial Risk for: harm to self and rapid decompensation Statement Statement: I have reviewed the history and physical and performed a pertinent examination on my patient. No changes have occurred unless specified. If the History and Physical was not performed prior to admission, the Hospitalist's service will be consulted for completing the admission physical. Time Spent With Patient Time: Total time managing care of this patient today ____ minutes.
[2022-10-01] MEDS: cloNIDine HCL 0.1 MG TABLET PO (14:48)
[2022-10-01] MEDS: Gabapentin 300 MG CAPSULE PO ×3 (14:49→20:30)
[2022-10-01 18:11] LABS: Appearance Urine Clear; Color Urine Yellow; Glucose Urine UA Negative (Negative); Leukocyte Esterase Urine Moderate (2+) (Negative); Nitrite Urine Negative (Negative); PH 8.5 (5.0-9.0); Specific Gravity - Urine <= 1.005 (1.005-1.025); UMIC TRIGGER UACC YES; Urine Blood Negative (Negative); Urine Ketones Negative (Negative); Urine Protein Negative (Neg-Trace)
[2022-10-01 18:14] LABS: Bacteria Urine None Seen (None Seen); Hyaline Casts Urine 0-2 /LPF (0-2); RBC Urine 0-2 /HPF (0-2); Squamous Epithelial Cell Urine 0-2 /HPF (0-2); UACC Culture Trigger YES
[2022-10-02] MEDS: Acetaminophen 325 MG TABLET 650 MG PO ×2 (04:41→19:40)
[2022-10-02] MEDS: hydrOXYzine HCL 25 MG TABLET PO (04:42)
[2022-10-02] MEDS: cloNIDine HCL 0.1 MG TABLET PO (04:42)
[2022-10-02] MEDS: Gabapentin 300 MG CAPSULE PO ×3 (07:53→19:39)
[2022-10-02] MEDS: Cyclobenzaprine HCl 10 MG TABLET PO (08:24)
[2022-10-02 08:28] VITALS: BP 109/59; PULSE 73; RESP 16; TEMP 36.3; O2SAT 98
--- NOTE | 2022-10-02 09:48 | P.PNPSI_ITS ---
Subjective Subjective Date of Service: 10/02/22 Reason For Visit: SI Interim History: met with patient; discussed with team Patient feeling a little better and withdrawal symptoms waning a bit. Patient fully engaged, cooperative and shared much about her history. Patient has several incidents of childhood trauma as well as some adult incidences and has ongoing PTSD including flashbacks, hypervigilance, easily startled, struggles with trust and history of nightmares. Patient also endorses what sound like manic episodes that can last anywhere from 2 days every few months to episodes the last 2 weeks which occur about once a year and include decreased need for sleep, hyperactivity, talking more, increased confidence, risky behaviors including hitch hiking, relapse with substance abuse, increased libido, increased spending... All which is followed by depressive episodes which can sometimes be severe for couple days and interfere with going to work. Patient had 1 episode back in 2019 where she ended up in a stolen car, and another state, worried about a [place] invasion... this episode was fueled by substance abuse and patient blacked out for about 36 hours; however patient is not sure if the manic episode started 1st and then she abused substances or if this was strictly due to street drugs. Patient reports family history of bipolar disorder through her maternal aunt and maternal cousins. Patient has never had medication trials; discussed mood stabilizers, risks and side effects and patient agrees to starting Lamictal. Also discussed history of substance abuse and alcohol abuse seems to be the door way to relapsing with heroin or cocaine. Patient does not want to get on Suboxone, not wanting to be addicted to anything, however would like to get on naltrexone/Vivitrol which she has been on before. Patient's plan is to go live at her mother's after dis charge; her mother does struggle with alcoholism and patient knows that it will be triggering however she feels it is the safer option. Discussed role of therapy and patient is eager to engage; she has tried other therapist in the past which has not worked out however patient says she wants to keep trying feels a strong need to talk about and process her history of trauma. psych hx: Last hospitalization 2019 for depression 1 suicide attempt in her 20s No medication trials Mental Status Exam Mental Status Exam Narrative: Pt is alert and oriented; behavior is polite, cooperative, in physical discomfort from opiate withdrawal but less so; dressed in hospital attire with unkempt hair; mood is described as depressed and affect congruent, tearful, but more engaged; eye contact appropriate; Speech is normal rate, volume and prosody and not pressured; some psychomotor retardation present but less; thought process is organized and goal directed; Thought content is on dealing with depression, withdrawal; otherwise pertinent to relevant topics and without any delusional content, paranoid ideations or grandiosity; denies any SI/HI. There is no evidence of perceptual disturbance. Patients insight and judgment are impaired but improved. Diagnostics Vital Signs (24Hr): Vital Signs - 24 hr 10/02/22 08:28 Temperature 97.4 F Pulse Rate 73 Respiratory Rate 16 Blood Pressure 109/59 L Pulse Oximetry 98 Oxygen Delivery Method Room Air Labs 10/01/22 10:36 10/01/22 10:36 Labs: Laboratory Results - last 48 hr 10/01/22 10/01/22 10/01/22 08:32 10:36 10:36 WBC 7.6 RBC 4.25 Hgb 13.4 Hct 38.3 MCV 90.1 MCH 31.5 MCHC 35.0 RDW 12.3 Plt Count 200 MPV 10.2 Absolute Nucleated RBC 0.000 Nucleated RBC % (auto) 0.0 Sodium 141 139 Potassium 3.4 3.3 Chloride 101 103 Carbon Dioxide 29 28 Anion Gap 14 11 L BUN 16 15 Creatinine 0.85 0.77 Estim Creat Clear Calc TNP TNP Estimated GFR > 60 > 60 Random Glucose 145 H Fasting Glucose 97 Calcium 9.1 8.5 D Total Bilirubin 0.7 AST 26 ALT 38 H Alkaline Phosphatase 51 Total Protein 6.4 L Albumin 4.2 Triglycerides 175 Cholesterol 204 LDL Cholesterol, Calc 106 HDL Cholesterol 63 Urine Color Urine Appearance Urine pH Ur Specific [place] Urine Protein Urine Glucose (UA) Urine Ketones Urine Blood Urine Nitrite Ur Leukocyte Esterase Urine RBC Urine WBC Urine WBC Clumps Ur Squamous Epith Cells Ur Transition Epith Cell Ur Renal Epithelial Cell Calcium Oxalate Crystal Leucine Crystals Cystine Crystals Tyrosine Crystals Other Crystals Urine Bacteria Urine Parasites Bilirubin Casts Epithelial Casts Fatty Casts Hyaline Casts Granular Casts Waxy Casts Broad Casts RBC Casts WBC Casts Other Casts Urine Trichomonas Urine Yeast 10/01/22 10/01/22 18:00 18:00 WBC RBC Hgb Hct MCV MCH MCHC RDW Plt Count MPV Absolute Nucleated RBC Nucleated RBC % (auto) Sodium Potassium Chloride Carbon Dioxide Anion Gap BUN Creatinine Estim Creat Clear Calc Estimated GFR Random Glucose Fasting Glucose Calcium Total Bilirubin AST ALT Alkaline Phosphatase Total Protein Albumin Triglycerides Cholesterol LDL Cholesterol, Calc HDL Cholesterol Urine Color Yellow Cancelled Urine Appearance Clear Cancelled Urine pH 8.5 Cancelled Ur Specific [place] <= 1.005 Cancelled Urine Protein Negative Cancelled Urine Glucose (UA) Negative Cancelled Urine Ketones Negative Cancelled Urine Blood Negative Cancelled Urine Nitrite Negative Cancelled Ur Leukocyte Esterase Moderate (2+) H Cancelled Urine RBC 0-2 Cancelled Urine WBC 6-10 H Cancelled Urine WBC Clumps Cancelled Ur Squamous Epith Cells 0-2 Cancelled Ur Transition Epith Cell Cancelled Ur Renal Epithelial Cell Cancelled Calcium Oxalate Crystal Cancelled Leucine Crystals Cancelled Cystine Crystals Cancelled Tyrosine Crystals Cancelled Other Crystals Cancelled Urine Bacteria None Seen Cancelled Urine Parasites Cancelled Bilirubin Casts Cancelled Epithelial Casts Cancelled Fatty Casts Cancelled Hyaline Casts 0-2 Cancelled Granular Casts Cancelled Waxy Casts Cancelled Broad Casts Cancelled RBC Casts Cancelled WBC Casts Cancelled Other Casts Cancelled Urine Trichomonas Cancelled Urine Yeast Cancelled Medications Medications Current Medications Acetaminophen (Acetaminophen 325 Mg Tablet) 650 mg PO Q6H PRN PRN Reason: Headache/Pain Mild Scale (1-3) Last Admin: 10/02/22 04:41 Dose: 650 mg Al Hydroxide/Mg Hydroxide (Magnesium Hydrox/Alum Hydrox 30 Ml Oral.Susp) 30 ml PO Q6H PRN PRN Reason: Heartburn/Nausea Buprenorphine/Naloxone (Buprenorphine/Naloxone 2/0.5mg Film) 1 film SUBLINGUAL TID PRN PRN Reason: Opiate Withdrawal Calcium Carbonate (Calcium Carbonate 750 Mg Tab.Chew) 750 mg PO Q6H PRN PRN Reason: Dyspepsia Clonidine HCl (Clonidine Hcl 0.1 Mg Tablet) 0.1 mg PO Q4H PRN; Protocol PRN Reason: withdrawal symptoms Last Admin: 10/02/22 04:42 Dose: 0.1 mg Cyclobenzaprine HCl (Cyclobenzaprine Hcl 10 Mg Tablet) 10 mg PO TID PRN PRN Reason: muscle aches Last Admin: 10/02/22 08:24 Dose: 10 mg Dicyclomine HCl (Dicyclomine Hcl 10 Mg Capsule) 10 mg PO QID PRN PRN Reason: stomach cramps Gabapentin (Gabapentin 300 Mg Capsule) 300 mg PO TID ADRIEL Last Admin: 10/02/22 07:53 Dose: 300 mg Hydroxyzine HCl (Hydroxyzine Hcl 25 Mg Tablet) 25 mg PO Q6H PRN PRN Reason: Anxiety Last Admin: 10/02/22 04:42 Dose: 25 mg Loperamide HCl (Loperamide Hcl 2 Mg Capsule) 2 mg PO Q6H PRN PRN Reason: Loose Stool Magnesium Hydroxide (Milk Of Magnesia 30 Ml Oral.Susp) 30 ml PO DAILY PRN PRN Reason: Constipation Trazodone HCl (Trazodone Hcl 50 Mg Tablet) 50 mg PO BEDTIME MRX1 PRN PRN Reason: Insomnia Last Admin: 10/01/22 21:46 Dose: 50 mg Allergies Allergies Allergy/AdvReac Type Severity Reaction Status Date / Time No Known Allergies Allergy Verified 09/29/22 07:21 Assessment & Plan Assessment & Plan (1) Bipolar disorder: Status: Acute Code(s): F31.9 - Bipolar disorder, unspecified (2) PTSD (post-traumatic stress disorder): Status: Acute Code(s): F43.10 - Post-traumatic stress disorder, unspecified (3) Opioid use disorder: Status: Acute Code(s): F11.90 - Opioid use, unspecified, uncomplicated Plan Patient is a 32-year-old female with history of depression, anxiety opioid use disorder and polysubstance abuse who presents for intentional overdose in the face of worsening depression, requiring medical admission and Narcan drip. Interaction kept short since patient was in significant discomfort from opiate withdrawal. She is currently ambivalent about whether not to get on Suboxone as a maintenance medication. Agrees to comfort measures for now. Will readdress psychiatric history and further assess current episode once patient is more able to talk. Hospital course: 10/02 patient still having withdrawal symptoms however doing better and willing and able to engage in discussions; remains depressed but SI resolved. Discussed medication management. Patient has had a long history of resisting medications however she has come to the conclusion she probably needs it; she has some ambivalence about whether she actually has bipolar disorder however agrees that she very well might and agrees to mood stabilizer. After discussing options patient agreed to start Lamictal, understanding risks/side effects of this medication; discussed how this may or may not prevent manic episodes and further medication management may be necessary. Patient wants to start naltrexone after 7 days from last use. -reviewed UA; patient complains of dysuria with burning sensation when urinating; while this could be due to indwelling catheter, patient's UA positive for UTI so will start Macrobid -diagnose with bipolar disorder given patient's reported history and biological loading (while PTSD is substance abuse can certainly appear similar to a manic episode, patient endorses significant, numerous symptoms and meets criteria) Plan: CV Q 15 minute checks Currently Patient's boyfriend not allowed on the unit out of concern that he may bring substances STARTED Lamictal 25 mg daily STARTED clonazepam 0.5 mg b.i.d.; will taper and discontinue; patient understands and agrees this will not be continued on discharge START Macrobid 100 mg b.i.d. for 5 days for UTI Likely start naltrexone 06/08, 7 days since last opioid use comfort medications (clonidine, Flexeril, Bentyl, Imodium;Suboxone 2/0.5 mg t.i.d. p.r.n. for withdrawal symptoms ) Continue gabapentin 300 mg t.i.d; will start to taper and discontinue Patient educated on: diagnosis, medication risk/benefits, substance abuse, therapeutic strategies and medical condition Informed Consent: understands Reason for contiued inpatient stay Substantial Risk for: rapid decompensation Time Spent With Patient Time: Total time managing care of this patient today ____ minutes.
--- NOTE | 2022-10-02 12:19 | PC.NURSE ---
pt craving to use drugs. states she needs benzo's as she feels so terrible from withdrawl. prns given of flexeril earlier as she had used all of her prns. stated she had been holding her bf's drugs so he didnt overdose on them or use too much too soon. she took them in an intentional overdose. bf coming to visit today. i spoke danika delvalle, director to review. we agreed this would not be a good time for a visit as she has been having such cravings. she is aware, bf is aware and all staff aware. she is dissappointed but appears to understand.
[2022-10-02] MEDS: lamoTRIgine 25 MG TABLET PO (14:31)
[2022-10-02] MEDS: clonazePAM 0.5 MG TABLET PO ×2 (14:31→19:39)
[2022-10-02] MEDS: Nitrofurantoin Monohyd/M-Cryst 100 MG CAPSULE PO ×2 (14:53→19:39)
[2022-10-02 17:45] VITALS: BP 133/81; PULSE 97
[2022-10-03] MEDS: hydrOXYzine HCL 25 MG TABLET PO (02:39)
[2022-10-03] MEDS: traZODone HCL 50 MG TABLET PO ×2 (02:39→19:46)
[2022-10-03 06:00] VITALS: BP 118/74; PULSE 116; RESP 14; TEMP 36.6; O2SAT 99
[2022-10-03] MEDS: lamoTRIgine 25 MG TABLET PO (08:27)
[2022-10-03] MEDS: Nitrofurantoin Monohyd/M-Cryst 100 MG CAPSULE PO ×2 (08:27→19:44)
[2022-10-03] MEDS: clonazePAM 0.5 MG TABLET PO ×2 (08:28→19:44)
[2022-10-03] MEDS: Gabapentin 300 MG CAPSULE PO ×2 (08:28→19:44)
[2022-10-03] MEDS: Cyclobenzaprine HCl 10 MG TABLET PO (16:08)
[2022-10-03 16:09] VITALS: BP 123/77; PULSE 98; RESP 16; TEMP 37; O2SAT 97
--- NOTE | 2022-10-03 16:21 | HO.PSYCHPN ---
Subjective Subjective Date of Service: 10/03/22 Reason For Visit: SI Interim History: Reports feeling improved, less time in bed, her first day finally feeling back to herself. Review with team/nursing Requests Ensure with meals. Medication Compliance: Yes Side effects from medications: No Attending Groups: Intermittent Review of Systems Acute medical concerns: No Medical Review of Systems: unchanged Mental Status Exam Mental Status Exam Patient Appearance: Appropriate Patient Orientation: Person, Place, Time and Situation Level of Consciousness: Alert Patient Behavior: Talkative and Good Eye Contact Mood Description: Flat Affect Description: Flat Patient Cognition Impaired: No Ability to Follow Directions: Good Speech Pattern: Spontaneous Speech Memory Description: Intact Hallucinations: None Delusions: Not Present Thought Process: Distracted Thought Content: positive for Circumstantial Depressive Symptoms: Low Self Esteem Judgement: Fair Diagnostics Vital Signs (24Hr): Vital Signs - 24 hr 10/02/22 17:45 10/03/22 06:00 10/03/22 16:09 Temperature 97.8 F 98.6 F Pulse Rate 97 116 H 98 Respiratory Rate 14 16 Blood Pressure 133/81 118/74 123/77 Pulse Oximetry 99 97 Oxygen Delivery Method Room Air Room Air Labs 10/01/22 10:36 10/01/22 10:36 Labs: Laboratory Results - last 48 hr 10/01/22 10/01/22 18:00 18:00 Urine Color Yellow Cancelled Urine Appearance Clear Cancelled Urine pH 8.5 Cancelled Ur Specific [place] <= 1.005 Cancelled Urine Protein Negative Cancelled Urine Glucose (UA) Negative Cancelled Urine Ketones Negative Cancelled Urine Blood Negative Cancelled Urine Nitrite Negative Cancelled Ur Leukocyte Esterase Moderate (2+) H Cancelled Urine RBC 0-2 Cancelled Urine WBC 6-10 H Cancelled Urine WBC Clumps Cancelled Ur Squamous Epith Cells 0-2 Cancelled Ur Transition Epith Cell Cancelled Ur Renal Epithelial Cell Cancelled Calcium Oxalate Crystal Cancelled Leucine Crystals Cancelled Cystine Crystals Cancelled Tyrosine Crystals Cancelled Other Crystals Cancelled Urine Bacteria None Seen Cancelled Urine Parasites Cancelled Bilirubin Casts Cancelled Epithelial Casts Cancelled Fatty Casts Cancelled Hyaline Casts 0-2 Cancelled Granular Casts Cancelled Waxy Casts Cancelled Broad Casts Cancelled RBC Casts Cancelled WBC Casts Cancelled Other Casts Cancelled Urine Trichomonas Cancelled Urine Yeast Cancelled Medications Medications Current Medications Acetaminophen (Acetaminophen 325 Mg Tablet) 650 mg PO Q6H PRN PRN Reason: Headache/Pain Mild Scale (1-3) Last Admin: 10/02/22 19:40 Dose: 650 mg Al Hydroxide/Mg Hydroxide (Magnesium Hydrox/Alum Hydrox 30 Ml Oral.Susp) 30 ml PO Q6H PRN PRN Reason: Heartburn/Nausea Buprenorphine/Naloxone (Buprenorphine/Naloxone 2/0.5mg Film) 1 film SUBLINGUAL TID PRN PRN Reason: Opiate Withdrawal Calcium Carbonate (Calcium Carbonate 750 Mg Tab.Chew) 750 mg PO Q6H PRN PRN Reason: Dyspepsia Clonazepam (Clonazepam 0.5 Mg Tablet) 0.5 mg PO BID ON LICENSE OF [facility] Last Admin: 10/03/22 08:28 Dose: 0.5 mg Clonidine HCl (Clonidine Hcl 0.1 Mg Tablet) 0.1 mg PO Q4H PRN; Protocol PRN Reason: withdrawal symptoms Last Admin: 10/02/22 04:42 Dose: 0.1 mg Cyclobenzaprine HCl (Cyclobenzaprine Hcl 10 Mg Tablet) 10 mg PO TID PRN PRN Reason: muscle aches Last Admin: 10/03/22 16:08 Dose: 10 mg Dicyclomine HCl (Dicyclomine Hcl 10 Mg Capsule) 10 mg PO QID PRN PRN Reason: stomach cramps Gabapentin (Gabapentin 300 Mg Capsule) 300 mg PO BID ON LICENSE OF [facility] Last Admin: 10/03/22 08:28 Dose: 300 mg Hydroxyzine HCl (Hydroxyzine Hcl 25 Mg Tablet) 25 mg PO Q6H PRN PRN Reason: Anxiety Last Admin: 10/03/22 02:39 Dose: 25 mg Lamotrigine (Lamotrigine 25 Mg Tablet) 25 mg PO DAILY ON LICENSE OF [facility] Last Admin: 10/03/22 08:27 Dose: 25 mg Loperamide HCl (Loperamide Hcl 2 Mg Capsule) 2 mg PO Q6H PRN PRN Reason: Loose Stool Magnesium Hydroxide (Milk Of Magnesia 30 Ml Oral.Susp) 30 ml PO DAILY PRN PRN Reason: Constipation Nitrofurantoin Macrocrystals (Nitrofurantoin Monohyd/M-Cryst 100 Mg Capsule) 100 mg PO BID ON LICENSE OF [facility] Last Admin: 10/03/22 08:27 Dose: 100 mg Trazodone HCl (Trazodone Hcl 50 Mg Tablet) 50 mg PO BEDTIME MRX1 PRN PRN Reason: Insomnia Last Admin: 10/03/22 02:39 Dose: 50 mg Allergies Allergies Allergy/AdvReac Type Severity Reaction Status Date / Time No Known Allergies Allergy Verified 09/29/22 07:21 Assessment & Plan Assessment & Plan (1) Bipolar disorder: Status: Acute Code(s): F31.9 - Bipolar disorder, unspecified (2) PTSD (post-traumatic stress disorder): Status: Acute Code(s): F43.10 - Post-traumatic stress disorder, unspecified (3) Opioid use disorder: Status: Acute Code(s): F11.90 - Opioid use, unspecified, uncomplicated Plan Patient is a 32-year-old female with history of depression, anxiety opioid use disorder and polysubstance abuse who presents for intentional overdose in the face of worsening depression, requiring medical admission and Narcan drip. Interaction kept short since patient was in significant discomfort from opiate withdrawal. She is currently ambivalent about whether not to get on Suboxone as a maintenance medication. Agrees to comfort measures for now. Will readdress psychiatric history and further assess current episode once patient is more able to talk. Hospital course: 10/02 patient still having withdrawal symptoms however doing better and willing and able to engage in discussions; remains depressed but SI resolved. Discussed medication management. Patient has had a long history of resisting medications however she has come to the conclusion she probably needs it; she has some ambivalence about whether she actually has bipolar disorder however agrees that she very well might and agrees to mood stabilizer. After discussing options patient agreed to start Lamictal, understanding risks/side effects of this medication; discussed how this may or may not prevent manic episodes and further medication management may be necessary. Patient wants to start naltrexone after 7 days from last use. -reviewed UA; patient complains of dysuria with burning sensation when urinating; while this could be due to indwelling catheter, patient's UA positive for UTI so will start Macrobid -diagnose with bipolar disorder given patient's reported history and biological loading (while PTSD is substance abuse can certainly appear similar to a manic episode, patient endorses significant, numerous symptoms and meets criteria) 10/03/25 Continue current plan. Plan: CV Q 15 minute checks Currently Patient's boyfriend not allowed on the unit out of concern that he may bring substances STARTED Lamictal 25 mg daily STARTED clonazepam 0.5 mg b.i.d.; will taper and discontinue; patient understands and agrees this will not be continued on discharge START Macrobid 100 mg b.i.d. for 5 days for UTI Likely start naltrexone 06/08, 7 days since last opioid use comfort medications (clonidine, Flexeril, Bentyl, Imodium;Suboxone 2/0.5 mg t.i.d. p.r.n. for withdrawal symptoms ) Continue gabapentin 300 mg t.i.d; will start to taper and discontinue Informed Consent: understands Reason for contiued inpatient stay Substantial Risk for: rapid decompensation Time Spent With Patient Time: Total time managing care of this patient today ____ minutes.
[2022-10-04 08:34] VITALS: BP 116/74; PULSE 104; RESP 16; TEMP 37.1; O2SAT 99
[2022-10-04] MEDS: lamoTRIgine 25 MG TABLET PO (08:48)
[2022-10-04] MEDS: clonazePAM 0.5 MG TABLET PO ×2 (08:48→20:22)
[2022-10-04] MEDS: Nitrofurantoin Monohyd/M-Cryst 100 MG CAPSULE PO ×2 (08:48→20:21)
[2022-10-04] MEDS: Gabapentin 300 MG CAPSULE PO ×2 (08:48→20:21)
[2022-10-04] MEDS: hydrOXYzine HCL 25 MG TABLET PO (14:47)
[2022-10-04 17:29] VITALS: BP 136/75; PULSE 96; TEMP 36.6; O2SAT 100
--- NOTE | 2022-10-04 18:37 | P.PNPSI_ITS ---
Subjective Subjective Date of Service: 10/04/22 Reason For Visit: SI Subjective Notes: Conditional Voluntary Interim History: Improved. Out of bed, dressed, engaged after a rough 3-4 days. Sleep is improving, detox waning, med adjustments of 10/02 helpful per pt report. Medication Compliance: Yes Side effects from medications: No Attending Groups: Intermittent Review of Systems Acute medical concerns: No Medical Review of Systems: unchanged Mental Status Exam Mental Status Exam Patient Appearance: Appropriate Patient Orientation: Person, Place, Time and Situation Level of Consciousness: Alert Patient Behavior: Talkative and Good Eye Contact Mood Description: Flat Affect Description: Flat Patient Cognition Impaired: No Ability to Follow Directions: Good Speech Pattern: Spontaneous Speech Memory Description: Intact Hallucinations: None Delusions: Not Present Thought Process: Distracted Thought Content: positive for Circumstantial Depressive Symptoms: Low Self Esteem Judgement: Fair Diagnostics Vital Signs (24Hr): Vital Signs - 24 hr 10/04/22 08:34 10/04/22 17:29 Temperature 98.7 F 98 F Pulse Rate 104 H 96 Respiratory Rate 16 Blood Pressure 116/74 136/75 Pulse Oximetry 99 100 Oxygen Delivery Method Room Air Room Air Labs 10/01/22 10:36 10/01/22 10:36 Medications Medications Current Medications Acetaminophen (Acetaminophen 325 Mg Tablet) 650 mg PO Q6H PRN PRN Reason: Headache/Pain Mild Scale (1-3) Last Admin: 10/02/22 19:40 Dose: 650 mg Al Hydroxide/Mg Hydroxide (Magnesium Hydrox/Alum Hydrox 30 Ml Oral.Susp) 30 ml PO Q6H PRN PRN Reason: Heartburn/Nausea Buprenorphine/Naloxone (Buprenorphine/Naloxone 2/0.5mg Film) 1 film SUBLINGUAL TID PRN PRN Reason: Opiate Withdrawal Calcium Carbonate (Calcium Carbonate 750 Mg Tab.Chew) 750 mg PO Q6H PRN PRN Reason: Dyspepsia Clonazepam (Clonazepam 0.5 Mg Tablet) 0.5 mg PO BID [facility] Last Admin: 10/04/22 08:48 Dose: 0.5 mg Clonidine HCl (Clonidine Hcl 0.1 Mg Tablet) 0.1 mg PO Q4H PRN; Protocol PRN Reason: withdrawal symptoms Last Admin: 10/02/22 04:42 Dose: 0.1 mg Cyclobenzaprine HCl (Cyclobenzaprine Hcl 10 Mg Tablet) 10 mg PO TID PRN PRN Reason: muscle aches Last Admin: 10/03/22 16:08 Dose: 10 mg Dicyclomine HCl (Dicyclomine Hcl 10 Mg Capsule) 10 mg PO QID PRN PRN Reason: stomach cramps Gabapentin (Gabapentin 300 Mg Capsule) 300 mg PO BID [facility] Last Admin: 10/04/22 08:48 Dose: 300 mg Hydroxyzine HCl (Hydroxyzine Hcl 25 Mg Tablet) 25 mg PO Q6H PRN PRN Reason: Anxiety Last Admin: 10/04/22 14:47 Dose: 25 mg Lamotrigine (Lamotrigine 25 Mg Tablet) 25 mg PO DAILY [facility] Last Admin: 10/04/22 08:48 Dose: 25 mg Loperamide HCl (Loperamide Hcl 2 Mg Capsule) 2 mg PO Q6H PRN PRN Reason: Loose Stool Magnesium Hydroxide (Milk Of Magnesia 30 Ml Oral.Susp) 30 ml PO DAILY PRN PRN Reason: Constipation Nitrofurantoin Macrocrystals (Nitrofurantoin Monohyd/M-Cryst 100 Mg Capsule) 100 mg PO BID [facility] Last Admin: 10/04/22 08:48 Dose: 100 mg Trazodone HCl (Trazodone Hcl 50 Mg Tablet) 50 mg PO BEDTIME MRX1 PRN PRN Reason: Insomnia Last Admin: 10/03/22 19:46 Dose: 50 mg Allergies Allergies Allergy/AdvReac Type Severity Reaction Status Date / Time No Known Allergies Allergy Verified 09/29/22 07:21 Assessment & Plan Assessment & Plan (1) Bipolar disorder: Status: Acute Code(s): F31.9 - Bipolar disorder, unspecified (2) PTSD (post-traumatic stress disorder): Status: Acute Code(s): F43.10 - Post-traumatic stress disorder, unspecified (3) Opioid use disorder: Status: Acute Code(s): F11.90 - Opioid use, unspecified, uncomplicated Plan Patient is a 32-year-old female with history of depression, anxiety opioid use disorder and polysubstance abuse who presents for intentional overdose in the face of worsening depression, requiring medical admission and Narcan drip. Interaction kept short since patient was in significant discomfort from opiate withdrawal. She is currently ambivalent about whether not to get on Suboxone as a maintenance medication. Agrees to comfort measures for now. Will readdress psychiatric history and further assess current episode once patient is more able to talk. Hospital course: 10/02 patient still having withdrawal symptoms however doing better and willing and able to engage in discussions; remains depressed but SI resolved. Discussed medication management. Patient has had a long history of resisting medications however she has come to the conclusion she probably needs it; she has some ambivalence about whether she actually has bipolar disorder however agrees that she very well might and agrees to mood stabilizer. After discussing options patient agreed to start Lamictal, understanding risks/side effects of this medication; discussed how this may or may not prevent manic episodes and further medication management may be necessary. Patient wants to start naltrexone after 7 days from last use. -reviewed UA; patient complains of dysuria with burning sensation when urinating; while this could be due to indwelling catheter, patient's UA positive for UTI so will start Macrobid -diagnose with bipolar disorder given patient's reported history and biological loading (while PTSD is substance abuse can certainly appear similar to a manic episode, patient endorses significant, numerous symptoms and meets criteria) 10/03/22 Continue current plan. 10/04/22 Continue current plan. Plan: CV Q 15 minute checks Currently Patient's boyfriend not allowed on the unit out of concern that he may bring substances STARTED Lamictal 25 mg daily STARTED clonazepam 0.5 mg b.i.d.; will taper and discontinue; patient understands and agrees this will not be continued on discharge START Macrobid 100 mg b.i.d. for 5 days for UTI Likely start naltrexone 06/08, 7 days since last opioid use comfort medications (clonidine, Flexeril, Bentyl, Imodium;Suboxone 2/0.5 mg t.i.d. p.r.n. for withdrawal symptoms ) Continue gabapentin 300 mg t.i.d; will start to taper and discontinue Informed Consent: understands Reason for contiued inpatient stay Substantial Risk for: rapid decompensation Time Spent With Patient Time: Total time managing care of this patient today ____ minutes.
[2022-10-05 06:00] VITALS: BP 132/80; PULSE 80; RESP 14; TEMP 36.7; O2SAT 100
[2022-10-05] MEDS: clonazePAM 0.5 MG TABLET PO (08:29)
[2022-10-05] MEDS: lamoTRIgine 25 MG TABLET PO (08:29)
[2022-10-05] MEDS: Nitrofurantoin Monohyd/M-Cryst 100 MG CAPSULE PO ×2 (08:29→19:48)
[2022-10-05] MEDS: Gabapentin 300 MG CAPSULE PO (08:29)
--- NOTE | 2022-10-05 09:52 | P.PNPSI_ITS ---
Subjective Subjective Date of Service: 10/05/22 Reason For Visit: SI Interim History: Met with patient; discussed in team; reviewed covering providers notes Patient reports she is doing much better. Withdrawal symptoms are gone. Patient is in good mood and optimistic. She becomes tearful saying how grateful she is she is alive and that depression and SI remained fully resolved. Even her anxiety is down. Patient reflected more discussion and remains ambivalent, regarding diagnosis, leaning more to the side that she does not have bipolar disorder and that much of her behaviors were due to exuberance field by intoxication. Outreach Rep agrees that this remains possible and that over time perhaps the diagnosis will clarify. Patient does however think Lamictal is really good choice and wants to continue taking it. Patient reports that her boyfriend is currently on a detox unit and that the apartment is free social 1st go home and get settled there. She agrees she needs to get on naltrexone to stay safe and so will remain on the unit another 2 days so she can start on this medication. Mental Status Exam Mental Status Exam Narrative: Pt is alert and oriented; behavior is polite, cooperative, in physical discomfort from opiate withdrawal but less so; dressed in hospital attire with unkempt hair; mood is described as depressed and affect congruent, tearful, but more engaged; eye contact appropriate; Speech is normal rate, volume and prosody and not pressured; some psychomotor retardation present but less; thought process is organized and goal directed; Thought content is on dealing with depression, withdrawal; otherwise pertinent to relevant topics and without any delusional content, paranoid ideations or grandiosity; denies any SI/HI. There is no evidence of perceptual disturbance. Patients insight and judgment are impaired but improved. Diagnostics Vital Signs (24Hr): Vital Signs - 24 hr 10/04/22 17:29 Temperature 98 F Pulse Rate 96 Blood Pressure 136/75 Pulse Oximetry 100 Oxygen Delivery Method Room Air Labs 10/01/22 10:36 10/01/22 10:36 Medications Medications Current Medications Acetaminophen (Acetaminophen 325 Mg Tablet) 650 mg PO Q6H PRN PRN Reason: Headache/Pain Mild Scale (1-3) Last Admin: 10/02/22 19:40 Dose: 650 mg Al Hydroxide/Mg Hydroxide (Magnesium Hydrox/Alum Hydrox 30 Ml Oral.Susp) 30 ml PO Q6H PRN PRN Reason: Heartburn/Nausea Buprenorphine/Naloxone (Buprenorphine/Naloxone 2/0.5mg Film) 1 film SUBLINGUAL TID PRN PRN Reason: Opiate Withdrawal Calcium Carbonate (Calcium Carbonate 750 Mg Tab.Chew) 750 mg PO Q6H PRN PRN Reason: Dyspepsia Clonazepam (Clonazepam 0.5 Mg Tablet) 0.5 mg PO BID [facility] Last Admin: 10/05/22 08:29 Dose: 0.5 mg Clonidine HCl (Clonidine Hcl 0.1 Mg Tablet) 0.1 mg PO Q4H PRN; Protocol PRN Reason: withdrawal symptoms Last Admin: 10/02/22 04:42 Dose: 0.1 mg Cyclobenzaprine HCl (Cyclobenzaprine Hcl 10 Mg Tablet) 10 mg PO TID PRN PRN Reason: muscle aches Last Admin: 10/03/22 16:08 Dose: 10 mg Dicyclomine HCl (Dicyclomine Hcl 10 Mg Capsule) 10 mg PO QID PRN PRN Reason: stomach cramps Gabapentin (Gabapentin 300 Mg Capsule) 300 mg PO BID [facility] Last Admin: 10/05/22 08:29 Dose: 300 mg Hydroxyzine HCl (Hydroxyzine Hcl 25 Mg Tablet) 25 mg PO Q6H PRN PRN Reason: Anxiety Last Admin: 10/04/22 14:47 Dose: 25 mg Lamotrigine (Lamotrigine 25 Mg Tablet) 25 mg PO DAILY [facility] Last Admin: 10/05/22 08:29 Dose: 25 mg Loperamide HCl (Loperamide Hcl 2 Mg Capsule) 2 mg PO Q6H PRN PRN Reason: Loose Stool Magnesium Hydroxide (Milk Of Magnesia 30 Ml Oral.Susp) 30 ml PO DAILY PRN PRN Reason: Constipation Nitrofurantoin Macrocrystals (Nitrofurantoin Monohyd/M-Cryst 100 Mg Capsule) 100 mg PO BID [facility] Last Admin: 10/05/22 08:29 Dose: 100 mg Trazodone HCl (Trazodone Hcl 50 Mg Tablet) 50 mg PO BEDTIME MRX1 PRN PRN Reason: Insomnia Last Admin: 10/03/22 19:46 Dose: 50 mg Allergies Allergies Allergy/AdvReac Type Severity Reaction Status Date / Time No Known Allergies Allergy Verified 09/29/22 07:21 Assessment & Plan Assessment & Plan (1) Bipolar disorder: Status: Acute Code(s): F31.9 - Bipolar disorder, unspecified (2) PTSD (post-traumatic stress disorder): Status: Acute Code(s): F43.10 - Post-traumatic stress disorder, unspecified (3) Opioid use disorder: Status: Acute Code(s): F11.90 - Opioid use, unspecified, uncomplicated Plan Patient is a 32-year-old female with history of depression, anxiety opioid use disorder and polysubstance abuse who presents for intentional overdose in the face of worsening depression, requiring medical admission and Narcan drip. Interaction kept short since patient was in significant discomfort from opiate withdrawal. She is currently ambivalent about whether not to get on Suboxone as a maintenance medication. Agrees to comfort measures for now. Will readdress psychiatric history and further assess current episode once patient is more able to talk. Hospital course: 10/02 patient still having withdrawal symptoms however doing better and willing and able to engage in discussions; remains depressed but SI resolved. Discussed medication management. Patient has had a long history of resisting medications however she has come to the conclusion she probably needs it; she has some ambivalence about whether she actually has bipolar disorder however agrees that she very well might and agrees to mood stabilizer. After discussing options p atient agreed to start Lamictal, understanding risks/side effects of this medication; discussed how this may or may not prevent manic episodes and further medication management may be necessary. Patient wants to start naltrexone after 7 days from last use. -reviewed UA; patient complains of dysuria with burning sensation when urinating; while this could be due to indwelling catheter, patient's UA positive for UTI so will start Macrobid -diagnose with bipolar disorder given patient's reported history and biological loading (while PTSD is substance abuse can certainly appear similar to a manic episode, patient endorses significant, numerous symptoms and meets criteria) 10/03/22 Continue current plan. 10/04/22 Continue current plan. 10/05 much improved, depression gone; SI resolved; affect noticeably brighter, patient in good mood future oriented and optimistic. Agrees to stay on Lamictal and to get naltrexone. Plan: CV Q 15 minute checks Continue Lamictal 25 mg daily Taper clonazepam 0.5 mg b.i.d.; will taper and discontinue; patient understands and agrees this will not be continued on discharge Continue Macrobid 100 mg b.i.d. for 5 days for UTI Will start naltrexone 06/09 eight days since last opioid use comfort medications (clonidine, Flexeril, Bentyl, Imodium;Suboxone 2/0.5 mg t.i.d. p.r.n. for withdrawal symptoms ) Taper gabapentin 300 mg t.i.d; will start to taper and discontinue Patient educated on: diagnosis, medication risk/benefits, substance abuse and therapeutic strategies Informed Consent: understands Reason for contiued inpatient stay Substantial Risk for: stable for discharge Time Spent With Patient Time: Total time managing care of this patient today ____ minutes.
[2022-10-05 18:00] VITALS: BP 136/84; PULSE 92; RESP 14; TEMP 36.7; O2SAT 100
[2022-10-05] MEDS: hydrOXYzine HCL 25 MG TABLET PO (19:48)
[2022-10-05] MEDS: traZODone HCL 50 MG TABLET PO (22:27)
[2022-10-06] MEDS: clonazePAM 0.5 MG TABLET PO (07:52)
[2022-10-06] MEDS: Gabapentin 300 MG CAPSULE PO (07:52)
[2022-10-06] MEDS: lamoTRIgine 25 MG TABLET PO (07:52)
[2022-10-06] MEDS: Nitrofurantoin Monohyd/M-Cryst 100 MG CAPSULE PO ×2 (07:52→20:55)
[2022-10-06] MEDS: Acetaminophen 325 MG TABLET 650 MG PO (07:52)
[2022-10-06 08:33] VITALS: BP 135/80; PULSE 98; RESP 16; TEMP 36.3; O2SAT 100
--- NOTE | 2022-10-06 10:00 | HO.PSYCHPN ---
Subjective Subjective Date of Service: 10/06/22 Reason For Visit: SI Interim History: Patient reports she is doing well; she is in a good mood and feels excited to continue pursuing sobriety. Patient talked to 1 of her sisters who is very supportive and patient feels encouraged about remaining stable. Patient reports that depression has abated and SI fully resolved. She is tolerating medications well and agrees to continue taking them. She also agrees to starting naltrexone tomorrow and that eventually Judyitrol; sheet writer reviewed risks of naltrexone including potential for precipitated withdrawal however patient feels the risk is worth the benefit and wants to proceed forward. Patient feels ready for discharge tomorrow which is the plan. Mental Status Exam Mental Status Exam Narrative: Pt is alert and oriented; behavior is cooperative, friendly and calm; patient is not in distress; dressed in casual attire and well groomed; mood is described as good and affect congruent; eye contact appropriate; Speech is normal rate, volume and prosody and not pressured; no psychomotor agitation/retardation present; thought process is organized and goal directed; Thought content is on aftercare, treatment; otherwise pertinent to relevant topics and without any delusional content, paranoid ideations or grandiosity; denies any SI/HI. There is no evidence of perceptual disturbance. Patients insight and judgment are intact Diagnostics Vital Signs (24Hr): Vital Signs - 24 hr 10/05/22 18:00 10/06/22 08:33 Temperature 98.1 F 97.4 F Pulse Rate 92 98 Respiratory Rate 14 16 Blood Pressure 136/84 135/80 Pulse Oximetry 100 100 Oxygen Delivery Method Room Air Room Air Labs 10/01/22 10:36 10/01/22 10:36 Medications Medications Current Medications Acetaminophen (Acetaminophen 325 Mg Tablet) 650 mg PO Q6H PRN PRN Reason: Headache/Pain Mild Scale (1-3) Last Admin: 10/06/22 07:52 Dose: 650 mg Al Hydroxide/Mg Hydroxide (Magnesium Hydrox/Alum Hydrox 30 Ml Oral.Susp) 30 ml PO Q6H PRN PRN Reason: Heartburn/Nausea Calcium Carbonate (Calcium Carbonate 750 Mg Tab.Chew) 750 mg PO Q6H PRN PRN Reason: Dyspepsia Clonazepam (Clonazepam 0.5 Mg Tablet) 0.5 mg PO DAILY [facility] Last Admin: 10/06/22 07:52 Dose: 0.5 mg Clonidine HCl (Clonidine Hcl 0.1 Mg Tablet) 0.1 mg PO Q4H PRN; Protocol PRN Reason: withdrawal symptoms Last Admin: 10/02/22 04:42 Dose: 0.1 mg Cyclobenzaprine HCl (Cyclobenzaprine Hcl 10 Mg Tablet) 10 mg PO TID PRN PRN Reason: muscle aches Last Admin: 10/03/22 16:08 Dose: 10 mg Dicyclomine HCl (Dicyclomine Hcl 10 Mg Capsule) 10 mg PO QID PRN PRN Reason: stomach cramps Gabapentin (Gabapentin 300 Mg Capsule) 300 mg PO DAILY [facility] Last Admin: 10/06/22 07:52 Dose: 300 mg Hydroxyzine HCl (Hydroxyzine Hcl 25 Mg Tablet) 25 mg PO Q6H PRN PRN Reason: Anxiety Last Admin: 10/05/22 19:48 Dose: 25 mg Lamotrigine (Lamotrigine 25 Mg Tablet) 25 mg PO DAILY [facility] Last Admin: 10/06/22 07:52 Dose: 25 mg Loperamide HCl (Loperamide Hcl 2 Mg Capsule) 2 mg PO Q6H PRN PRN Reason: Loose Stool Magnesium Hydroxide (Milk Of Magnesia 30 Ml Oral.Susp) 30 ml PO DAILY PRN PRN Reason: Constipation Nitrofurantoin Macrocrystals (Nitrofurantoin Monohyd/M-Cryst 100 Mg Capsule) 100 mg PO BID [facility] Last Admin: 10/06/22 07:52 Dose: 100 mg Trazodone HCl (Trazodone Hcl 50 Mg Tablet) 50 mg PO BEDTIME MRX1 PRN PRN Reason: Insomnia Last Admin: 10/05/22 22:27 Dose: 50 mg Allergies Allergies Allergy/AdvReac Type Severity Reaction Status Date / Time No Known Allergies Allergy Verified 09/29/22 07:21 Assessment & Plan Assessment & Plan (1) Bipolar disorder: Status: Acute Code(s): F31.9 - Bipolar disorder, unspecified (2) PTSD (post-traumatic stress disorder): Status: Acute Code(s): F43.10 - Post-traumatic stress disorder, unspecified (3) Opioid use disorder: Status: Acute Code(s): F11.90 - Opioid use, unspecified, uncomplicated Plan Patient is a 32-year-old female with history of depression, anxiety opioid use disorder and polysubstance abuse who presents for intentional overdose in the face of worsening depression, requiring medical admission and Narcan drip. Interaction kept short since patient was in significant discomfort from opiate withdrawal. She is currently ambivalent about whether not to get on Suboxone as a maintenance medication. Agrees to comfort measures for now. Will readdress psychiatric history and further assess current episode once patient is more able to talk. Hospital course: 10/02 patient still having withdrawal symptoms however doing better and willing and able to engage in discussions; remains depressed but SI resolved. Discussed medication management. Patient has had a long history of resisting medications however she has come to the conclusion she probably needs it; she has some ambivalence about whether she actually has bipolar disorder however agrees that she very well might and agrees to mood stabilizer. After discussing options patient agreed to start Lamictal, understanding risks/side effects of this medication; discussed how this may or may not prevent manic episodes and further medication management may be necessary. Patient wants to start naltrexone after 7 days from last use. -reviewed UA; patient complains of dysuria with burning sensation when urinating; while this could be due to indwelling catheter, patient's UA positive for UTI so will start Macrobid -diagnose with bipolar disorder given patient's reported history and biological loading (while PTSD is substance abuse can certainly appear similar to a manic episode, patient endorses significant, numerous symptoms and meets criteria) 10/03/22 Continue current plan. 10/04/22 Continue current plan. 10/05 much improved, depression gone; SI resolved; affect noticeably brighter, patient in good mood future oriented and optimistic. Agrees to stay on Lamictal and to get naltrexone. 10/06 patient remains much improved, good mood, bright affect, future oriented and stable. Addressing sobriety issues and agrees to start naltrexone. Patient feels ready for discharge and plans to go tomorrow. While patient remains vulnerable to relapse and decompensation she is not in imminent risk for harm to self or others and her request for discharge honored. Plan: CV Q 15 minute checks Continue Lamictal 25 mg daily Taper clonazepam 0.5 mg b.i.d.; will taper and discontinue; patient understands and agrees this will not be continued on discharge Continue Macrobid 100 mg b.i.d. for 5 days for UTI Will start naltrexone 11/29 eight days since last opioid use comfort medications (clonidine, Flexeril, Bentyl, Imodium;Suboxone 2/0.5 mg t.i.d. p.r.n. for withdrawal symptoms ) Taper gabapentin 300 mg t.i.d; will start to taper and discontinue Patient educated on: diagnosis, medication risk/benefits and substance abuse Reason for contiued inpatient stay Substantial Risk for: stable for discharge Time Spent With Patient Time: Total time managing care of this patient today ____ minutes.
--- NOTE | 2022-10-06 16:07 | P.DS_ITS ---
DS: Providers Provider Date of Service: 10/07/22 Date of admission: 09/30/22 22:10 Date of discharge: 10/07/22 Primary care physician: Unknown Physician Attending physician on admission: Cj Kemp Attending physician on discharge: Cj Kemp DS: Diagnosis Discharge Diagnosis (1) Bipolar disorder: Status: Acute (2) PTSD (post-traumatic stress disorder): Status: Acute (3) Opioid use disorder: Status: Acute DS: Medications Discharge Medications Home Medications: Previous Rx's Medication Instructions Recorded lamotrigine 25 mg tablet See Rx Instructions .Route 10/06/22 .COMPLEX #50 tabs naloxone 4 mg/actuation nasal spray 1 spray intranasal DAILY PRN 10/06/22 opioid overdose #1 ea naltrexone 50 mg tablet 50 mg PO DAILY 30 days #30 tabs 10/06/22 trazodone 50 mg tablet 50 mg PO BEDTIME PRN Insomnia 30 10/06/22 days #30 tabs Mental Status Exam Mental Status Exam Narrative: Pt is alert and oriented; behavior is cooperative, friendly and calm; patient is not in distress; dressed in casual attire and well groomed; mood is described as good and affect congruent; eye contact appropriate; Speech is normal rate, volume and prosody and not pressured; no psychomotor agitation/retardation present; thought process is organized and goal directed; Thought content is on aftercare, treatment; otherwise pertinent to relevant topics and without any delusional content, paranoid ideations or grandiosity; denies any SI/HI. There is no evidence of perceptual disturbance. Patients insight and judgment are intact Data Data Completed and Pending Completed studies during hospitalization [Text1]: 10/01/22 10/01/22 10/01/22 08:32 10:36 10:36 WBC 7.6 RBC 4.25 Hgb 13.4 Hct 38.3 MCV 90.1 MCH 31.5 MCHC 35.0 RDW 12.3 Plt Count 200 MPV 10.2 Absolute Nucleated RBC 0.000 Nucleated RBC % (auto) 0.0 Sodium 141 139 Potassium 3.4 3.3 Chloride 101 103 Carbon Dioxide 29 28 Anion Gap 14 11 L BUN 16 15 Creatinine 0.85 0.77 Estim Creat Clear Calc TNP TNP Estimated GFR > 60 > 60 Random Glucose 145 H Fasting Glucose 97 Calcium 9.1 8.5 D Total Bilirubin 0.7 AST 26 ALT 38 H Alkaline Phosphatase 51 Total Protein 6.4 L Albumin 4.2 Triglycerides 175 Cholesterol 204 LDL Cholesterol, Calc 106 HDL Cholesterol 63 Urine Color Urine Appearance Urine pH Ur Specific [place] Urine Protein Urine Glucose (UA) Urine Ketones Urine Blood Urine Nitrite Ur Leukocyte Esterase Urine RBC Urine WBC Urine WBC Clumps Ur Squamous Epith Cells Ur Transition Epith Cell Ur Renal Epithelial Cell Calcium Oxalate Crystal Leucine Crystals Cystine Crystals Tyrosine Crystals Other Crystals Urine Bacteria Urine Parasites Bilirubin Casts Epithelial Casts Fatty Casts Hyaline Casts Granular Casts Waxy Casts Broad Casts RBC Casts WBC Casts Other Casts Urine Trichomonas Urine Yeast 10/01/22 10/01/22 18:00 18:00 WBC RBC Hgb Hct MCV MCH MCHC RDW Plt Count MPV Absolute Nucleated RBC Nucleated RBC % (auto) Sodium Potassium Chloride Carbon Dioxide Anion Gap BUN Creatinine Estim Creat Clear Calc Estimated GFR Random Glucose Fasting Glucose Calcium Total Bilirubin AST ALT Alkaline Phosphatase Total Protein Albumin Triglycerides Cholesterol LDL Cholesterol, Calc HDL Cholesterol Urine Color Yellow Cancelled Urine Appearance Clear Cancelled Urine pH 8.5 Cancelled Ur Specific [place] <= 1.005 Cancelled Urine Protein Negative Cancelled Urine Glucose (UA) Negative Cancelled Urine Ketones Negative Cancelled Urine Blood Negative Cancelled Urine Nitrite Negative Cancelled Ur Leukocyte Esterase Moderate (2+) H Cancelled Urine RBC 0-2 Cancelled Urine WBC 6-10 H Cancelled Urine WBC Clumps Cancelled Ur Squamous Epith Cells 0-2 Cancelled Ur Transition Epith Cell Cancelled Ur Renal Epithelial Cell Cancelled Calcium Oxalate Crystal Cancelled Leucine Crystals Cancelled Cystine Crystals Cancelled Tyrosine Crystals Cancelled Other Crystals Cancelled Urine Bacteria None Seen Cancelled Urine Parasites Cancelled Bilirubin Casts Cancelled Epithelial Casts Cancelled Fatty Casts Cancelled Hyaline Casts 0-2 Cancelled Granular Casts Cancelled Waxy Casts Cancelled Broad Casts Cancelled RBC Casts Cancelled WBC Casts Cancelled Other Casts Cancelled Urine Trichomonas Cancelled Urine Yeast Cancelled 10/01/22 Unknown Urine clean catch - Urine araujo top Urine Culture - Final DS: Summary Hospital Course Hospital Course: HPI: Patient is a bright, friendly 32-year-old female with history of depression, anxiety opioid use disorder and polysubstance abuse who presents for intentional overdose in the face of worsening depression, requiring medical admission and Narcan drip.? Hospital course: Admission, patient was depressed however all suicidality had resolved and she was very grateful to be alive. She was in discomfort from withdrawal but did not want to get on Suboxone for maintenance, preferring to wait it out and get on naltrexone which she had been on before and also helped with alcohol cravings. After discussing patient's history travel writer provisionally diagnosed patient with bipolar disorder. Greenskeeper Supervisor conceded that it is possible that her manic episodes were due to a combination of exuberance, alcohol and drug abuse and PTSD symptoms, and thus diagnosis left provisional, however his they were distinct, episodic and met criteria for bipolar disorder. Patient had never had medication trials and so agreed to start Lamictal since it can help with bipolar depression but also covers for PTSD symptoms. Patient progressed and soon depression fully resolved; she was in a good mood, with noticeably brighter affect, sleeping well, eating well and engaged in treatment. SI remained fully resolved. She remained with good behaviors and impulse control and had appropriate behaviors with peers and staff throughout her stay. Patient was future oriented and optimistic about staying sober, with a plan to remain on naltrexone, get on Vivitrol and move out of her boyfriends. Patient was very eager to start therapy to process her history of trauma and appointments were set up. Patient asked for discharge feeling ready to go home and continue treatment as an outpatient. While she remains vulnerable to relapse and dysregulation, these are chronic conditions and patient is appropriate to continue treatment in the outpatient setting. She is not in imminent risk for harm to self or others and her request for discharge honored. Time spent discussing smoking cessation with patient: 3 to 10 minutes Status at Discharge Functional status at discharge: independent ambulation Overall status at discharge: patient is back to baseline Time Spent with Patient Time attestation: Total time managing care of this patient today ____ minutes. Time spent: Less than 30 minutes Discharge Plan Discharge Anticipated Discharge Date/Time: 10/07/22 11:00 Patient Disposition: Home, Self-Care Discharge Diagnosis: Bipolar disorder (provisional), most recently depressed, in full remisson Referrals: PCP Dr. Velázquez [Other] - 10/21/22 1:00 pm (On your first visit ask then about a Pt 1. The medical receptionist biller said they can work to provide you one after your first visit. ) [facility] Intake Leona Carrillo [Other] - 10/09/22 12:00 pm (Office Visit. Inquire about a Pt. 1 during your first visit, they will help you set it up. ) [facility] Psychiatric Eval Leslie Magan [Other] - 11/05/22 10:30 am (Telehealth) [facility] Medication Management Leslie Magan [Other] - 12/03/22 10:00 am (Telehealth) [facility] [[email or web address] Vivitrol Appointment [Other] - 10/14/22 2:30 pm ([facility] [[email or web address] has set you up with a Pt 1 for your visits with them. Be on the look-out for the Pt 1 information in your mailbox which will include instructions as to how to use [employer] (the transportation service). ) Discharge Medications: New naltrexone 50 mg Tablet 50 mg PO DAILY 30 Days Qty: 30 0RF trazodone 50 mg Tablet 50 mg PO BEDTIME PRN (Reason: Insomnia) 30 Days Qty: 30 0RF lamotrigine 25 mg Tablet See Rx Instructions .ROUTE .COMPLEX Qty: 50 0RF Rx Instructions: Take 1 tablet daily for 11 days; then take 2 tablets daily Changed naloxone 4 mg/actuation spray,non-aerosol 1 spray intranasal DAILY PRN (Reason: opioid overdose) Qty: 1 0RF Discharge Orders: Discharge Order (Routine); Ordered 10/07/22 Ordered By: Cj Kemp Diet: Regular diet Activity on Discharge: As tolerated Stand Alone Forms: Patient Portal Discharge page, Community Support Care Plan Goals: Maintain mood and safe behaviors Take medications as prescribed Continue to pursue sobriety Practice coping skills Continue with outpatient providers and reach out to them as needed Health Concerns: Mood stability and behaviors Sobriety Plan of Treatment: Follow up with your Psychiatric provider and other outpatient providers regarding above concerns Take medications as prescribed Assessment: Risk assessment at time of discharge:? Patient was interviewed prior to discharge and found to be fully oriented and without any SI or HI. Patient has insight and demonstrates good judgment in terms of wanting to pursue treatment. Patient is not in imminent risk of harm to self or others and has a safety plan that includes presenting to the closest ER or calling 911 if feeling unsafe.? Patient has been observed closely by nursing and unit staff throughout admission; patient has not engaged in any behaviors that suggest dangerousness to self or others and has demonstrated appropriate behaviors and impulse control
[2022-10-06 16:25] VITALS: BP 127/72; PULSE 76
[2022-10-06] MEDS: hydrOXYzine HCL 25 MG TABLET PO (19:36)
[2022-10-07] MEDS: lamoTRIgine 25 MG TABLET PO (08:19)
[2022-10-07] MEDS: clonazePAM 0.5 MG TABLET PO (08:19)
[2022-10-07] MEDS: Gabapentin 300 MG CAPSULE PO (08:19)
[2022-10-07] MEDS: Nitrofurantoin Monohyd/M-Cryst 100 MG CAPSULE PO (08:19)
[2022-10-07] MEDS: Naltrexone HCl 50 MG TABLET 25 MG PO (08:19)
[2022-10-07 08:50] VITALS: BP 110/82; PULSE 99; RESP 16; TEMP 36.6; O2SAT 100
== END 2022-10-07 11:05 | disposition home or self-care (01) | DRG 753 ==
PROVIDERS: Admitting Provider Psychiatry & Neurology Psychiatry; Visit Provider Psychiatry & Neurology Psychiatry
DX: F31.30 Bipolar disorder, current episode depressed, mild or moderate severity, unspecified (principal); R45.851 Suicidal ideations; F11.13 Opioid abuse with withdrawal; F43.10 Post-traumatic stress disorder, unspecified; F19.10 Other psychoactive substance abuse, uncomplicated; Z87.891 Personal history of nicotine dependence; Z79.899 Other long term (current) drug therapy
CPT/HCPCS: 36415; 80048; 80053; 80061; 81001; 85027; 87086

== ENCOUNTER 2022-10-10 16:15 | Emergency (ER) | payer MEDICAID, SELFPAY ==
[2022-10-10 16:22] VITALS: BP 142/82; PULSE 75; RESP 16; TEMP 36.4; O2SAT 100; BMI 20.5
--- NOTE | 2022-10-10 16:24 | ED.GENADULT ---
HPI - General Adult General Chief complaint: Upper Respiratory Symptoms Stated complaint: ?infection left arm old iv site Source: patient Mode of arrival: ambulatory Limitations: no limitations History of Present Illness HPI narrative: This is a 32-year-old female history of opiate use disorder, bipolar disorder, suicide attempts, PTSD presenting to the emergency department with complaints of pain, tingly sensation to left forearm where IV was inserted on 09/29/2022. Patient reports that she was seen here and an IV was placed, she knows side around the site of IV placement there was redness, pus, it has gotten better however she still feels a strange sensation to her left forearm at site of IV placement. Denies fevers, chills, chest pain, shortness of breath, nausea, vomiting, headache, vision change, dizziness, weakness, abdominal pain. Related Data Previous Rx's Medication Instructions Recorded lamotrigine 25 mg tablet See Rx Instructions .Route 10/06/22 .COMPLEX #50 tabs naloxone 4 mg/actuation nasal spray 1 spray intranasal DAILY PRN 10/06/22 opioid overdose #1 ea naltrexone 50 mg tablet 50 mg PO DAILY 30 days #30 tabs 10/06/22 trazodone 50 mg tablet 50 mg PO BEDTIME PRN Insomnia 30 10/06/22 days #30 tabs lamotrigine 100 mg tablet 100 mg PO DAILY 30 days #30 tabs 10/07/22 (Lamictal) bacitracin zinc 500 unit/gram 1 appl topical TID #14.2 grams 10/10/22 topical ointment Allergies Allergy/AdvReac Type Severity Reaction Status Date / Time No Known Allergies Allergy Verified 09/29/22 07:21 Review of Systems Review of Systems: Constitutional : No Weight loss, No Fever, No Chills, No Fatigue, No Malaise ENT/Mouth : No sore throat, No Rhinorrhea Eyes: No Eye Pain, No Swelling, No Redness Cardiovascular : No Chest Pain, No SOB, No Dyspnea on Exertion, No Orthopnea, No Edema, No Palpitations Respiratory : No Cough, No Sputum, No Wheezing Gastrointestinal : No Nausea, No Vomiting, No Diarrhea, No Constipation, No abdominal Pain, No Hematochezia, No Melena Genitourinary : No Dysuria, No Urinary Frequency, No Hematuria, Musculoskeletal : No joint pain, No Myalgias, No Joint Swelling Skin : No Skin Lesions, + rash Neuro : No Weakness, No Numbness, No Dizziness, No Headache Psych : No Anxiety/Panic, No Depression All other systems reviewed and are negative Yes all other systems are reviewed and are negative [facility] Past Medical History Medical History (Updated 10/10/22 @ 16:30 by MARTITA Bernard) Bipolar disorder Intentional opiate overdose MDD (major depressive disorder), recurrent episode, severe Opioid use disorder Polysubstance overdose PTSD (post-traumatic stress disorder) Social History Social History Household Members: Significant Other Household Members Other:: 1 Housing: Apartment Do you presently have visiting nurse or other home services: No Alcohol intake: current Patient Tobacco Use Status: Former Tobacco user Quit Date: 2019 Tobacco use type: Cigarette e-Cigarette/Vaping Use: Former Use Second Hand Smoke Exposure: Yes Substance Use Type: Crack/Cocaine, Heroin, Marijuana, Opiates, Painkillers, Prescription Drugs and Caffiene service: No Current occupational status: employed Sexual orientation: Straight/Heterosexual Physical Exam ED Vital Signs: Vital signs stable Appearance: Alert.? Oriented X3.? No acute distress.? Head: Normocephalic, atraumatic, no step-offs or deformities Eyes: Pupils equal, round and reactive to light.? CVS: Normal heart rate and rhythm.? Pulses normal.? Respiratory: No respiratory distress.? Breath sounds normal.? Abdomen: Soft and nontender.? Skin: Skin warm and dry.? Normal skin color.? Normal skin turgor.? Extremities: No lower extremity edema.? No calf ttp. 5/5 strength to bilateral upper and lower extremities 2+ radial pulses equal bilateral. Normal capillary refill. I cannot appreciate cellulitis. There is a small site which appears to be a puncture site of an IV that appears to be healing. Neuro: Oriented X 3.? No motor deficit.? No sensory deficit. CN 2-12 intact Course Reevaluation(s) Reevaluation #1: Discharge patient with reassurance, advised to place warm compresses to the area. Educated patient on diagnosis and treatment plan, answered all question, patient verbalizes understanding. At this time patient will be discharged home, advised to return with new or worsening symptoms. Educated on worrisome signs and symptoms and when to return. At this time I feel comfortable discharge home. Time: 16:28 Medical Decision Making Medical Decision Making [facility] Narrative: 1629 32-year-old female presents for irritation to left forearm where IV was placed a few days ago. Physical exam benign This is likely thrombophlebitis from IV site. I do not appreciate cellulitis, erysipelas, 2+ radial pulses and brachial pulses equal bilateral no signs of venous or arterial occlusion. Plan discharge home with warm compresses Differential Diagnosis Differential Diagnoses: The differential diagnosis associated with the presentation includes This is likely thrombophlebitis from IV site. I do not appreciate cellulitis, erysipelas, 2+ radial pulses and brachial pulses equal bilateral no signs of venous or arterial occlusion. Admission/Observation Consideration of admission/observation: Escalation of care including admission/observation considered Core Measures AMI core measures followed: Yes Measure exclusions: not indicated Discharge Plan Discharge Clinical Impression: Thrombophlebitis Patient Disposition: Home, Self-Care Instructions: Warm Compress or Soak (ED) Additional Instructions: Take your medications as prescribed. If you were prescribed antibiotics today, it is important that you take your medication to their entirety, do not skip any doses, do not finish them early. Follow-up with your primary care provider this week. Return to the emergency department with new or worsening symptoms. Such as fevers, chills, chest pain, shortness of breath, nausea, vomiting, dizziness, headache, vision changes, lethargy In case of emergency call 911 Prescriptions: New bacitracin zinc 500 unit/gram ointment 1 appl topical TID Qty: 14.2 0RF No Action naltrexone 50 mg Tablet 50 mg PO DAILY 30 Days Qty: 30 0RF trazodone 50 mg Tablet 50 mg PO BEDTIME PRN (Reason: Insomnia) 30 Days Qty: 30 0RF lamotrigine 25 mg Tablet See Rx Instructions .ROUTE .COMPLEX Qty: 50 0RF Rx Instructions: Take 1 tablet daily for 11 days; then take 2 tablets daily naloxone 4 mg/actuation spray,non-aerosol 1 spray intranasal DAILY PRN (Reason: opioid overdose) Qty: 1 0RF lamotrigine [Lamictal] 100 mg tablet 100 mg PO DAILY 30 Days Qty: 30 0RF Rx Instructions: Fill on 11/02/22 Referrals: Kalani Velázquez MD [Primary Care Provider] - 2 days
--- NOTE | 2022-10-10 16:33 | PC.NURSE ---
PT WAS ASSESSED AND DISCHARGED BY PROVIDER
== END 2022-10-10 16:35 | disposition home or self-care (01) ==
LOC: HO.ED 16:34
PROVIDERS: Emergency Provider Emergency Medicine Emergency Medical Services; PCP Internal Medicine
DX: I80.8 Phlebitis and thrombophlebitis of other sites (principal); M79.632 Pain in left forearm
CPT/HCPCS: 99281; 99283

== ENCOUNTER → 2022-10-28 10:45 | Outpatient (BNVA) | payer MEDICAID, SELFPAY | PROVIDERS: PCP Internal Medicine; Visit Provider Nurse Practitioner Psychiatric/Mental Health | DX: Z51.81 Encounter for therapeutic drug level monitoring (principal); F11.20 Opioid dependence, uncomplicated | CPT/HCPCS: 80305; 99202 ==

== ENCOUNTER 2022-10-28 13:45 | Outpatient (REF) | payer MEDICAID, SELFPAY ==
[2022-10-28 14:00] LABS: MANUAL DIFF FLAG NO
[2022-10-28 15:31] LABS: Basophils Percent Auto 0.5 % (0-2); Eosinophils Absolute Auto 0.2 X10*3/uL (0.0-0.4); Eosinophils Percent Auto 1.9 % (0-4); Hematocrit 41.3 % (37.0-47.0); Hemoglobin 13.5 g/dl (12.0-16.0); Imm Gran Abs Auto 0.02 X10*3/uL (0.00-0.03); Imm Gran Pct Auto 0.3 % (0.0-0.4); Lymphocytes Absolute Auto 2.8 X10*3/uL (1.2-4.9); Lymphocytes Percent Auto 34.9 % (20-40); Mean Corpuscular HGB Conc 32.7 g/dl (31.0-35.0); Mean Corpuscular Hemoglobin 30.7 pg (27.0-33.0); Mean Corpuscular Volume 93.9 fL (80.0-98.0); Mean Platelet Volume 10.5 fL (9.4-12.3); Monocytes Absolute Auto 0.5 X10*3/uL (0.1-1.2); Monocytes Percent Auto 6.1 % (2-11); Neutrophils Absolute Auto 4.5 x10*3/uL (2.0-8.3); Neutrophils Percent Auto 56.3 % (45-73); Platelet Count 199 X10*3/uL (160-400); Red Cell Distribution Width 12.7 % (11.0-16.0)
[2022-10-28 15:50] LABS: Alanine Aminotransferase 13 U/L (0-31); Albumin Level 4.5 g/dL (3.5-5.0); Alkaline Phosphatase 66 U/L (39-117); Anion Gap 10 (12-20); Aspartate Amino Transferase 15 U/L (5-31); Bilirubin Total 0.3 mg/dL (0.0-1.0); Blood Urea Nitrogen 9 mg/dL (9-16); Calcium 8.7 mg/dL (8.4-10.2); Carbon Dioxide 27 mmol/L (22-29); Chloride 108 mmol/L (96-108); Estimated Glomerular Filt Rate > 60; Glucose Random 85 mg/dL (60-115); Potassium 4.1 mmol/L (3.3-5.1); Sodium 141 mmol/L (135-145); Total Protein 6.6 g/dL (6.5-8.0)
[2022-10-30 04:27] LABS: HBS Num1 4.62 mIU/mL (0-7.99); HBc Num1 0.06 S/CO (0.00-0.79); HBsAGNum1 0.45 S/CO (0.00-0.99); Hepatitis A Antibody IgM 0.17 Index (0-0.79); Hepatitis B Core Antibody Nonreactive (Nonreactive); Hepatitis B Surface Antigen Negative (Negative); ~HepC Num1 0.11 S/CO (0.00-0.79); ~Hepatitis A Antibody IgM Nonreactive (Nonreactive); ~Hepatitis B Surface Antibody NONREACTIVE (Nonreactive); ~Hepatitis C Antibody Nonreactive (Nonreactive)
== END 2022-10-28 13:46 | disposition home or self-care (01) ==
LOC: HO.LAB 13:45
PROVIDERS: PCP Internal Medicine; Visit Provider Internal Medicine
DX: Z00.00 Encounter for general adult medical examination without abnormal findings (principal); F11.20 Opioid dependence, uncomplicated; F10.90 Alcohol use, unspecified, uncomplicated; F14.90 Cocaine use, unspecified, uncomplicated; F32.9 Major depressive disorder, single episode, unspecified; Z51.81 Encounter for therapeutic drug level monitoring; Z79.899 Other long term (current) drug therapy
CPT/HCPCS: 36415; 80053; 85025; 86704; 86706; 86709; 86803; 87340

== ENCOUNTER → 2022-11-05 15:13 | Outpatient (BNVA) | payer MEDICAID, SELFPAY | PROVIDERS: PCP Internal Medicine; Visit Provider Nurse Practitioner Psychiatric/Mental Health | DX: Z51.81 Encounter for therapeutic drug level monitoring (principal); F11.20 Opioid dependence, uncomplicated; F10.20 Alcohol dependence, uncomplicated; Z79.899 Other long term (current) drug therapy; Z32.02 Encounter for pregnancy test, result negative | CPT/HCPCS: 80305; 81025; 96372; 99212 ==

== ENCOUNTER → 2022-12-01 13:19 | Outpatient (BNVA) | payer MEDICAID, SELFPAY | PROVIDERS: PCP Internal Medicine; Visit Provider Nurse Practitioner Psychiatric/Mental Health | DX: Z51.81 Encounter for therapeutic drug level monitoring (principal); F10.20 Alcohol dependence, uncomplicated; F11.20 Opioid dependence, uncomplicated; Z32.02 Encounter for pregnancy test, result negative; Z79.899 Other long term (current) drug therapy | CPT/HCPCS: 80305; 81025; 96372; 99212 ==

== ENCOUNTER → 2023-01-04 11:06 | Outpatient (BNVA) | payer MEDICAID, SELFPAY | PROVIDERS: PCP Internal Medicine; Visit Provider Nurse Practitioner Psychiatric/Mental Health | DX: F10.20 Alcohol dependence, uncomplicated (principal); F11.90 Opioid use, unspecified, uncomplicated | CPT/HCPCS: 80305; 81025; 96372; 99212 ==

== ENCOUNTER 2023-02-05 09:48 | Outpatient (AMB) | payer MEDICAID, SELFPAY ==
[2023-02-05 10:06] VITALS: BP 108/70; PULSE 63; O2SAT 99
--- NOTE | 2023-02-05 10:06 | A.OFFVIS_ITS ---
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 Required: No Allergies No Known Allergies Allergy (Verified 02/05/23 10:07) Do you need a note to return to daycare/school/sports/work: No HPI Judy Inj HPI Details Pt presents for SARAH treatment follow up and vivtrol injection Denies any side effects related to medication Doing well with recovery, working FT and settled into her new apt [facility] Medical History Bipolar disorder Intentional opiate overdose MDD (major depressive disorder), recurrent episode, severe Opioid use disorder Polysubstance overdose PTSD (post-traumatic stress disorder) Social History (Updated 02/08/23 @ 14:14 by Tracy Palacio CNP) Household Members: Friend(s) Household Members Other:: 1 Housing: Apartment Alcohol intake: former Patient Tobacco Use Status: Former Tobacco user Quit Date: 2019 Tobacco use type: Cigarette e-Cigarette/Vaping Use: Former Use Second Hand Smoke Exposure: Yes service: No Current occupational status: employed Sexual orientation: Straight/Heterosexual Review of Systems Const Reports as per HPI and Reports no additional complaints Physical Exam Vital Signs: Last Vital Signs Pulse 63 02/05/23 10:06 BP 108/70 02/05/23 10:06 Pulse Ox 99 02/05/23 10:06 Oxygen Delivery Method Room Air 02/05/23 10:06 Const General: cooperative, healthy appearing, comfortable, no acute distress, well developed and alert Nutritional Appearance: well nourished Orientation/consciousness: patient oriented x3 Limitations: no limitations Neuro General: patient oriented x3 Psych Appearance: well kempt Mental Status: mental status grossly normal Speech and movement: Normal speech and movement present Affect: normal affect Attitude: cooperative Thought process: Normal thought process present Thought content: Normal thought content present Insight: Good insight present (Psych) Judgement: Good judgement present (Psych) Office Meds Vivitrol ER Performing Provider: Tracy Palacio CNP Administered by: Merly Gamble on 02/05/23 10:00 Dose Route Admin Location Lot Number Expiration Date [employer] Lead 380 mg IM [id number] 06/10/25 [id number] [employer] Comments: Assessed area prior to injection. Educated pt on signs/symptoms of infection, encouraged to call the [facility] with any questions or concerns. Pt tolerated injection well. Results AMB 14 Panel Urine Drug Screen Urine Marijuana (THC) Positive Last Edit by Ksenia Manrique CMA on 02/05/23 10:08 Urine Cocaine Negative Last Edit by Ksenia Manrique CMA on 02/05/23 10:08 Urine Morphine Negative Last Edit by Ksenia Manrique CMA on 02/05/23 10:08 Urine Methamphetamine Negative Last Edit by Ksenia Manrique CMA on 02/05/23 10:08 Urine Amphetamine Negative Last Edit by Ksenia Manrique CMA on 02/05/23 10:0 8 Urine Benzodiazepine Negative Last Edit by Ksenia Manrique CMA on 02/05/23 10:08 Urine Barbiturates Negative Last Edit by Ksenia Manrique CMA on 02/05/23 10: 08 Urine Methadone Negative Last Edit by Ksenia Manrique CMA on 02/05/23 10:08 Urine Buprenorphine Negative Last Edit by Ksenia Manrique CMA on 02/05/23 10 :08 Urine Tricyclic Antidepressant Negative Last Edit by Ksenia Manrique CMA on 02/05/23 10:08 Urine MDMA Negative Last Edit by Ksenia Manrique CMA on 02/05/23 10:08 Urine Oxycodone Negative Last Edit by Ksenia Manrique CMA on 02/05/23 10:08 Urine Phencyclidine Negative Last Edit by Ksenia Manrique CMA on 02/05/23 10 :08 Urine Propoxyphene Negative Last Edit by Ksenia Manrique CMA on 02/05/23 10: 08 AMB Test Urine AMB Test Urine Negative Last Edit by Ksenia Manrique CMA on 10:09 Results Reviewed Results Reviewed: Laboratory Last Values [facility] Negative 02/05/23 10:07 POC Urine Buprenorphine Negative 02/05/23 10:07 POC Urine Morphine Negative 02/05/23 10:07 POC Urine Oxycodone Negative 02/05/23 10:07 POC Urine Methadone Negative 02/05/23 10:07 POC Urine Propoxyphene Negative 02/05/23 10:07 POC Urine Barbiturates Negative 02/05/23 10:07 POC U Tricyclic Antidpr Negative 02/05/23 10:07 POC Urine PCP Negative 02/05/23 10:07 POC Ur Amphetamines Negative 02/05/23 10:07 POC Ur Methamphetamine Negative 02/05/23 10:07 POC Urine MDMA Negative 02/05/23 10:07 POC Ur Benzodiazepine Negative 02/05/23 10:07 POC Urine Cocaine Negative 02/05/23 10:07 POC Ur Marijuana (THC) Positive 02/05/23 10:07 Assessment & Plan Assessment & Plan (1) Alcohol use disorder, moderate, dependence: Code(s): F10.20 - Alcohol dependence, uncomplicated Plan: tolerated injection relapse prevention discussion follow up 4 weeks (2) Opioid use disorder: Code(s): F11.90 - Opioid use, unspecified, uncomplicated Orders: Orders AMB Naltrexone Injection Patient Supplied 02/05/23 F10.20 - Alcohol dependence, uncomplicated, F11.90 - Opioid use, unspecified, uncomplicated AMB 14 Panel Urine Drug Screen 02/05/23 Z51.81 - Encounter for therapeutic drug level monitoring AMB HCG Urine Test 02/05/23 Z32.01 - Encounter for test, result positive, Z32.02 - Encounter for test, result negative Coding Level of Care Code Est Pt Level 3 (10830) Diagnoses Alcohol use disorder, moderate, dependence F10.20 Opioid use disorder F11.90
== END 2023-02-05 10:53 | disposition home or self-care (01) ==
LOC: HO.HCC 09:48
PROVIDERS: PCP Internal Medicine; Visit Provider Nurse Practitioner Psychiatric/Mental Health
DX: F10.20 Alcohol dependence, uncomplicated (principal); F11.90 Opioid use, unspecified, uncomplicated
CPT/HCPCS: 99213; J2315

== ENCOUNTER → 2023-02-05 09:48 | Outpatient (BNVA) | payer MEDICAID, SELFPAY | PROVIDERS: PCP Internal Medicine; Visit Provider Nurse Practitioner Psychiatric/Mental Health | DX: Z51.81 Encounter for therapeutic drug level monitoring (principal); Z32.02 Encounter for pregnancy test, result negative; F10.20 Alcohol dependence, uncomplicated; F11.20 Opioid dependence, uncomplicated; Z79.899 Other long term (current) drug therapy | CPT/HCPCS: 80305; 81025; 96372; 99213 ==

== ENCOUNTER 2023-02-09 11:41 | Emergency (ER) | payer MEDICAID, SELFPAY ==
--- NOTE | 2023-02-09 12:17 | ED.UPPEXIN ---
HPI - Extremity Injury (Upper) General Chief Complaint: Skin/Abscess/Foreign Body Stated Complaint: Finger lac Time Seen by Provider: 02/09/23 12:19 Source: patient Mode of arrival: ambulatory Limitations: no limitations History of Present Illness HPI narrative: 32 yo female presents to the ER for evaluation of a laceration on her left ring finger sustained with a gardening knife just prior to arrival. She states the knife slipped when she was gardening and cut the tip of the finger. There was a lot of bleeding initially but she washed it out and held pressure with resolution of bleeding. No numbness or tingling. Unknown last tdap. complaint: injury to: left and finger Onset (ago): minute(s) Other Extremity Injury: left: fingers Other injuries: none Handedness: right Place: home Severity: mild Context: injury Associated symptoms: denies other symptoms Treatments prior to arrival: bandage Related Data Previous Rx's Medication Instructions Recorded naloxone 4 mg/actuation nasal spray 1 spray intranasal DAILY PRN 10/06/22 opioid overdose #1 ea naltrexone 50 mg tablet 50 mg PO DAILY 30 days #30 tabs 10/06/22 trazodone 50 mg tablet 50 mg PO BEDTIME PRN Insomnia 30 10/06/22 days #30 tabs naltrexone microspheres 380 mg 380 mg IM Q4W #1 ea 10/28/22 intramuscular suspension,extended release (Vivitrol) Allergies Allergy/AdvReac Type Severity Reaction Status Date / Time No Known Allergies Allergy Verified 02/05/23 10:07 Review of Systems Review of Systems: Yes all other systems are reviewed and are negative PMFSH Past Medical History Medical History Bipolar disorder Intentional opiate overdose MDD (major depressive disorder), recurrent episode, severe Opioid use disorder Polysubstance overdose PTSD (post-traumatic stress disorder) Social History Social History (Updated 02/08/23 @ 14:14 by Tracy Palacio CNP) Household Members: Friend(s) Household Members Other:: 1 Housing: Apartment Alcohol intake: former Patient Tobacco Use Status: Former Tobacco user Quit Date: 2019 Tobacco use type: Cigarette e-Cigarette/Vaping Use: Former Use Second Hand Smoke Exposure: Yes Advance Directives: No Advance Directives Information Provided: No service: No Current occupational status: employed Sexual orientation: Straight/Heterosexual Physical Exam Vital Signs: Vital Signs: Last Vital Signs Temp 97.8 F 02/09/23 12:19 Pulse 92 02/09/23 12:19 Resp 18 02/09/23 12:19 BP 134/74 02/09/23 12:19 Pulse Ox 100 02/09/23 12:19 O2 Del Method Room Air 02/09/23 12:19 BMI result Body Mass Index 21.3 Appearance: Alert. Oriented X3. No acute distress. HEENT: normal inspection CVS: Normal heart rate and rhythm. Pulses normal. Respiratory: No respiratory distress. Skin: Skin warm and dry. Normal skin color. Normal skin turgor. No rashes. Extremities: tip o fleft 4th digit with a small 1cm superficial laceration at the tip involving the tip of the nail as well. no active bleeding. normal ROM of the finger. cap refill <3 sec. normal sensation Neuro: Oriented X 3. No motor deficit. No sensory deficit. Medications Administered Discontinued Medications Generic Name Dose Route Start Last Admin Trade Name Freq PRN Reason Stop Dose Admin Diphtheria/Tetanus/Acell Pertussis 0.5 ml 02/09/23 12:17 02/09/23 12:27 Diphth,Pertus(Acell),Tet Adult 0.5 Ml Syringe IM 02/09/23 12:18 0.5 ml .ONCE ONE Administration Medical Decision Making Medical Decision Making MDM Narrative: 32 yo female presenting with laceration to the tip of left 4th digit sustained on a gardening knife just prior to arrival. Lac is superficial and not bleeding. Repaired w/ exofin skin glue and steri srip w/ good effect. tdap given. no role for abx as lac was very superficial and irrigated/cleaned well. stable for d/c home Differential Diagnosis Differential Diagnoses: The differential diagnosis associated with the presentation includes superficial lac, deep lac, cellulitis, infected laceration External Record Review External record reviewed: Inpatient record, Outpatient record, Prior outpatient labs and Prior outpatient radiology Tests considered The following testing was considered but not selected: considered x-ray finger but not indicated Prescription Management I considered prescription management with: Antibiotic Procedures Laceration Laceration 1: Site: hand Side (If applicable): left Size (cm): 1 Description: linear Depth: simple, single layer Pre-repair: wound explored and irrigated extensively Skin layer closed with: other (exofin skin glue and steri strip) Critical Care Time Critical Care Time Critical Care Time: No Discharge Plan Discharge Clinical Impression: Finger laceration Patient Disposition: Home, Self-Care Instructions: Finger Laceration (ED) Additional Instructions: skin glue and steri strips were used to close the wound today these will come off on their own, usually within 1 week do not get wet for 24 hours then you can briefly wash with soap and water then pat dry monitor for signs of infection like redness, pain, swelling or drainage Prescriptions: No Action naltrexone 50 mg Tablet 50 mg PO DAILY 30 Days Qty: 30 0RF trazodone 50 mg Tablet 50 mg PO BEDTIME PRN (Reason: Insomnia) 30 Days Qty: 30 0RF naloxone 4 mg/actuation spray,non-aerosol 1 spray intranasal DAILY PRN (Reason: opioid overdose) Qty: 1 0RF Vivitrol 380 mg suspension,extended rel recon 380 mg IM Q4W Qty: 1 5RF Interventions: ED Discharge Assessment Last Done: 02/09/23 12:43 Discharge Date/Time: 02/09/23 12:43
[2023-02-09 12:19] VITALS: BP 134/74; PULSE 92; RESP 18; TEMP 36.6; O2SAT 100; BMI 21.3
[2023-02-09] MEDS: Diphth,Pertus(ACell),Tet Adult 0.5 ML SYRINGE IM (12:27)
== END 2023-02-09 12:43 | disposition home or self-care (01) ==
PROVIDERS: Emergency Provider Emergency Medicine; PCP Internal Medicine
DX: S61.215A Laceration without foreign body of left ring finger without damage to nail, initial encounter (principal); W27.1XXA Contact with garden tool, initial encounter; Y93.H2 Activity, gardening and landscaping; Y92.038 Other place in apartment as the place of occurrence of the external cause; Y99.9 Unspecified external cause status; Z87.891 Personal history of nicotine dependence
CPT/HCPCS: 12001; 90471; 90715; 99282; 99284

== ENCOUNTER 2023-03-02 09:37 | Outpatient (AMB) | payer MEDICAID, SELFPAY ==
--- NOTE | 2023-03-02 09:43 | MHC.OFFVIS ---
Intake Vital Signs 03/02/23 09:53 BP 110/78 Blood Pressure Location Lt radial Position Sitting Pulse 86 Pulse Source Pulse Oximeter Pulse Oximetry (%) 98 Oxygen Delivery Method Room Air Intake Visit Reasons: Judy Inj Intake Note: the patient presents for a judy inj Quoter Required: No Allergies No Known Allergies Allergy (Verified 03/02/23 09:43) Do you need a note to return to daycare/school/sports/work: No HPI Judy Inj HPI Details Patient seen for follow-up and Vivitrol injection. Reports that she continues to do well with recovery. No questions or concerns related to injection. Went to a wedding over the weekend [facility] Medical History Bipolar disorder Intentional opiate overdose MDD (major depressive disorder), recurrent episode, severe Opioid use disorder Polysubstance overdose PTSD (post-traumatic stress disorder) Social History (Updated 02/08/23 @ 14:14 by Tracy Palacio CNP) Household Members: Friend(s) Household Members Other:: 1 Housing: Apartment Alcohol intake: former Patient Tobacco Use Status: Former Tobacco user Quit Date: 2019 Tobacco use type: Cigarette e-Cigarette/Vaping Use: Former Use Second Hand Smoke Exposure: Yes service: No Current occupational status: employed Sexual orientation: Straight/Heterosexual Review of Systems Const Reports as per HPI and Reports no additional complaints Physical Exam Vital Signs: Last Vital Signs Pulse 86 03/02/23 09:53 BP 110/78 03/02/23 09:53 Pulse Ox 98 03/02/23 09:53 Oxygen Delivery Method Room Air 03/02/23 09:53 Const General: cooperative, healthy appearing, comfortable, no acute distress, well developed and alert Nutritional Appearance: well nourished Orientation/consciousness: patient oriented x3 Limitations: no limitations Neuro General: patient oriented x3 Psych Appearance: well kempt Mental Status: mental status grossly normal Speech and movement: Normal speech and movement present Affect: normal affect Attitude: cooperative Thought process: Normal thought process present Thought content: Normal thought content present Insight: Good insight present (Psych) Judgement: Good judgement present (Psych) Office Meds Vivitrol ER Performing Provider: Tracy Palacio CNP Administered by: Shahrzad Fermin RN on 03/02/23 10:16 Dose Route Admin Location Lot Number Expiration Date [employer] Cytology Technologist 380 mg IM [id number] 06/10/25 55024-907-29 [employer] Comments: T/W assessed for infection, no pain, no swelling, no redness, no discharge, no heat. Pt reminded to monitor for above and call the [facility]. Pt verbalized understanding. Pt tolerated injection. Results AMB 14 Panel Urine Drug Screen Urine Marijuana (THC) Positive Last Edit by Ksenia Manrique CMA on 03/02/23 09:55 Urine Cocaine Negative Last Edit by Ksenia Manrique CMA on 03/02/23 09:55 Urine Morphine Negative Last Edit by Ksenia Manrique CMA on 03/02/23 09:55 Urine Methamphetamine Negative Last Edit by Ksenia Manrique CMA on 03/02/23 09:55 Urine Amphetamine Negative Last Edit by Ksenia Manrique CMA on 03/02/23 09:55 Urine Benzodiazepine Negative Last Edit by Ksenia Manrique CMA on 03/02/23 09:55 Urine Barbiturates Negative Last Edit by Ksenia Manrique CMA on 03/02/23 09:55 Urine Methadone Negative Last Edit by Ksenia Manrique CMA on 03/02/23 09:55 Urine Buprenorphine Negative Last Edit by Ksenia Manrique CMA on 03/02/23 09:55 Urine Tricyclic Antidepressant Negative Last Edit by Ksenia Manrique CMA on 03/02/23 09:55 Urine MDMA Negative Last Edit by Ksenia Manrique CMA on 03/02/23 09:55 Urine Oxycodone Negative Last Edit by Ksenia Manrique CMA on 03/02/23 09:55 Urine Phencyclidine Negative Last Edit by Ksenia Manrique CMA on 03/02/23 09:55 Urine Propoxyphene Negative Last Edit by Ksenia Manrique CMA on 03/02/23 09:55 AMB Test Urine AMB Test Urine Negative Last Edit by Kseina Manrique CMA on 03/02/23 09:56 Results Reviewed Results Reviewed: Laboratory Last Values Tst Clinic Negative 03/02/23 09:44 POC Urine Buprenorphine Negative 03/02/23 09:44 POC Urine Morphine Negative 03/02/23 09:44 POC Urine Oxycodone Negative 03/02/23 09:44 POC Urine Methadone Negative 03/02/23 09:44 POC Urine Propoxyphene Negative 03/02/23 09:44 POC Urine Barbiturates Negative 03/02/23 09:44 POC U Tricyclic Antidpr Negative 03/02/23 09:44 POC Urine PCP Negative 03/02/23 09:44 POC Ur Amphetamines Negative 03/02/23 09:44 POC Ur Methamphetamine Negative 03/02/23 09:44 POC Urine MDMA Negative 03/02/23 09:44 POC Ur Benzodiazepine Negative 03/02/23 09:44 POC Urine Cocaine Negative 03/02/23 09:44 POC Ur Marijuana (THC) Positive 03/02/23 09:44 Assessment & Plan Assessment & Plan (1) Alcohol use disorder, moderate, dependence: Code(s): F10.20 - Alcohol dependence, uncomplicated Plan: tolerated injection relapse prevention discussion follow up 4 weeks (2) Opioid use disorder: Code(s): F11.90 - Opioid use, unspecified, uncomplicated Orders: Orders AMB Naltrexone Injection Patient Supplied 03/02/23 F10.20 - Alcohol dependence, uncomplicated AMB 14 Panel Urine Drug Screen 03/02/23 Z51.81 - Encounter for therapeutic drug level monitoring AMB HCG Urine Test 03/02/23 Z32.01 - Encounter for test, result positive, Z32.02 - Encounter for test, result negative Coding Level of Care Code Est Pt Level 3 (64879) Diagnoses Alcohol use disorder, moderate, dependence F10.20 Opioid use disorder F11.90
[2023-03-02 09:53] VITALS: BP 110/78; PULSE 86; O2SAT 98
== END 2023-03-02 10:32 | disposition home or self-care (01) ==
LOC: HO.HCC 09:37
PROVIDERS: PCP Internal Medicine; Visit Provider Nurse Practitioner Psychiatric/Mental Health
DX: F10.20 Alcohol dependence, uncomplicated (principal); F11.90 Opioid use, unspecified, uncomplicated
CPT/HCPCS: 99213; J2315

== ENCOUNTER → 2023-03-02 09:37 | Outpatient (BNVA) | payer MEDICAID, SELFPAY | PROVIDERS: PCP Internal Medicine; Visit Provider Nurse Practitioner Psychiatric/Mental Health | DX: F10.20 Alcohol dependence, uncomplicated (principal); F11.90 Opioid use, unspecified, uncomplicated; Z32.02 Encounter for pregnancy test, result negative | CPT/HCPCS: 80305; 81025; 96372; 99213 ==

== ENCOUNTER 2023-05-18 09:25 | Outpatient (AMB) | payer MEDICAID, SELFPAY ==
[2023-05-18 09:46] VITALS: BP 108/64; PULSE 86; O2SAT 98
--- NOTE | 2023-05-18 09:46 | MHC.AM.SUB ---
Intake Vital Signs 05/18/23 09:46 BP 108/64 Blood Pressure Location Lt brachial Position Sitting Pulse 86 Pulse Source Pulse Oximeter Pulse Oximetry (%) 98 Oxygen Delivery Method Room Air Intake Visit Reasons: MAT Restart Allergies No Known Allergies Allergy (Verified 03/02/23 09:43) HPI MAT Restart HPI Details Pt presents to clinic to re-establish care and restart MAT- has not been seen in the office since February. Reports her father in the beginning of March, and says this led to a relapse in alcohol use and percocet use. Reports she would only drink wine or beer, no hard liquor, and that she would only drink at restaurants- wouldn't keep alcohol at home. Reports she had percocets she had gotten for her father that were never used and that she used some herself before giving them away to a friend. Pt believes the pills were genuinely percocets and got them from someone with a prescription. Is hoping to get back into going to [facility] [employer]. 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 Has been leaning more into her spirituality , taking more time for herself, and speaking her truth more as self-care. She would like to re-start her vivitrol. [facility] Medical History Bipolar disorder Intentional opiate overdose MDD (major depressive disorder), recurrent episode, severe Opioid use disorder Polysubstance overdose PTSD (post-traumatic stress disorder) Social History (Updated 02/08/23 @ 14:14 by Tracy Palacio CNP) Household Members: Friend(s) Household Members Other:: 1 Housing: Apartment Alcohol intake: former Patient Tobacco Use Status: Former Tobacco user Quit Date: 2019 Tobacco use type: Cigarette e-Cigarette/Vaping Use: Former Use Second Hand Smoke Exposure: Yes service: No Current occupational status: employed Sexual orientation: Straight/Heterosexual Review of Systems Const Reports as per HPI Physical Exam Vital Signs: Last Vital Signs Pulse 86 05/18/23 09:46 BP 108/64 05/18/23 09:46 Pulse Ox 98 05/18/23 09:46 Oxygen Delivery Method Room Air 05/18/23 09:46 Const General: cooperative, healthy appearing and no acute distress Orientation/consciousness: patient oriented x3 Resp Effort & Inspection: normal respiratory effort Skin General skin exam: no rashes or lesions noted Neuro General: patient oriented x3 Psych Appearance: grossly normal Mental Status: mental status grossly normal Speech and movement: Normal speech and movement present Affect: normal affect Attitude: cooperative Assessment & Plan Assessment & Plan (1) Alcohol use disorder, moderate, dependence: Code(s): F10.20 - Alcohol dependence, uncomplicated Plan: Restart Vivitrol Discussed recovery supports and relapse prevention. Encouraged to call [facility] with any question, concerns, or if she needs to be seen sooner. Follow up in one week. Coding Level of Care Code Est Pt Level 4 (84173) Diagnoses Alcohol use disorder, moderate, dependence F10.20
== END 2023-05-18 09:53 | disposition home or self-care (01) ==
PROVIDERS: PCP Internal Medicine; Visit Provider Nurse Practitioner Family
DX: F10.20 Alcohol dependence, uncomplicated (principal)
CPT/HCPCS: 99214

== ENCOUNTER → 2023-05-18 09:25 | Outpatient (BNVA) | payer MEDICAID, SELFPAY | PROVIDERS: PCP Internal Medicine; Visit Provider Nurse Practitioner Psychiatric/Mental Health | DX: F10.20 Alcohol dependence, uncomplicated (principal) | CPT/HCPCS: 99212 ==

== ENCOUNTER 2023-05-25 10:11 | Outpatient (AMB) | payer MEDICAID, SELFPAY ==
--- NOTE | 2023-05-25 10:13 | MHC.OFFVIS ---
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 Is receiving Judy injection today after a small pause in injections Has no concerns related to inj or recovery. Reports she broke up with her boyfriend yesterday, had no urges to use alcohol after, feels good. Has been taking naltrexone all last week with no issues or concerns. [facility] Medical History Bipolar disorder Intentional opiate overdose MDD (major depressive disorder), recurrent episode, severe Opioid use disorder Polysubstance overdose PTSD (post-traumatic stress disorder) Social History (Updated 02/08/23 @ 14:14 by Tracy Palacio CNP) Household Members: Friend(s) Household Members Other:: 1 Housing: Apartment Alcohol intake: former Patient Tobacco Use Status: Former Tobacco user Quit Date: 2019 Tobacco use type: Cigarette e-Cigarette/Vaping Use: Former Use Second Hand Smoke Exposure: Yes service: No Current occupational status: employed Sexual orientation: Straight/Heterosexual Review of Systems Const Reports as per HPI Physical Exam Vital Signs: Last Vital Signs Pulse 94 05/25/23 10:20 BP 116/78 05/25/23 10:20 Pulse Ox 98 05/25/23 10:20 Oxygen Delivery Method Room Air 05/25/23 10:20 Const General: cooperative, healthy appearing, comfortable and no acute distress Resp Effort & Inspection: normal respiratory effort Skin General skin exam: no rashes or lesions noted Psych Appearance: grossly normal Mental Status: mental status grossly normal Speech and movement: Normal speech and movement present Affect: normal affect Office Meds Vivitrol 380 mg intramuscular suspension,extended release Performing Provider: Sydney Patterson NP Performing Location: [facility] Administered by: Beverley Guzman RN on 05/25/23 10:54 Dose Route Admin Location Dispensed Lot Number Expiration Date [facility] Trial Attorney 380 mg IM RG 380 mg 07/11/25 31326-866-72 [employer] [place] Comments: Pt tolerated injection well, denies concerns about previous injection from 03/03. Educated on signs and symptoms of infection, encouraged to call [facility] with any questions or concerns, pt verbalized understanding. Results AMB Test Urine AMB Test Urine Negative Last Edit by Ksenia Manrique CMA on 05/25/23 10:21 Results Reviewed Results Reviewed: Laboratory Last Values Tst Clinic Negative 05/25/23 10:14 Assessment & Plan Assessment & Plan (1) Alcohol use disorder, moderate, dependence: Code(s): F10.20 - Alcohol dependence, uncomplicated Plan: Pt tolerated injection well. Follow up in 4 weeks. Orders: Orders AMB HCG Urine Test Today Z32.01 - Encounter for test, result positive, Z32.02 - Encounter for test, result negative AMB Naltrexone Injection Today F10.20 - Alcohol dependence, uncomplicated Coding Level of Care Code Est Pt Level 3 (70514) Diagnoses Alcohol use disorder, moderate, dependence F10.20
[2023-05-25 10:20] VITALS: BP 116/78; PULSE 94; O2SAT 98
== END 2023-05-25 10:57 | disposition home or self-care (01) ==
PROVIDERS: PCP Internal Medicine; Visit Provider Nurse Practitioner Family
DX: Z32.02 Encounter for pregnancy test, result negative (principal); Z32.01 Encounter for pregnancy test, result positive; F10.20 Alcohol dependence, uncomplicated
CPT/HCPCS: 99213

== ENCOUNTER → 2023-05-25 10:11 | Outpatient (BNVA) | payer MEDICAID, SELFPAY | PROVIDERS: PCP Internal Medicine; Visit Provider Nurse Practitioner Family | DX: F10.20 Alcohol dependence, uncomplicated (principal); Z32.02 Encounter for pregnancy test, result negative; Z79.899 Other long term (current) drug therapy | CPT/HCPCS: 81025; 96372; 99212; J2315 ==

== ENCOUNTER 2023-06-22 09:31 | Outpatient (AMB) | payer MEDICAID, SELFPAY ==
--- NOTE | 2023-06-22 09:33 | AM.OFFVISNUR ---
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 presents for AUD F/U and Vivitrol injection.? Pt A&O x 4 pleasant and cooperative with care.? Pt reports some local pain at injection site following last injection that resolved with time. Educated pt. on applying ice and massaging for comfort when this occurs. Pt verbalizes understanding. Pt denies any other SE of injection . Pt reports being involved in fellowship for support in recovery and that since her OD she feels increased motivation to maintain sobriety. Pt. is motivated for recovery and is actively participating in her treatment.? T/W administered Vivitrol injection as per provider orders.? Pt. will F/U in clinic in four weeks for check in and injection. Pt reports she has Narcan available if needed. Office Meds Vivitrol 380 mg intramuscular suspension,extended release Performing Provider: Tracy Palacio CNP Performing Location: [facility] Administered by: Bebe Burton RN on 06/22/23 09:55 Dose Route Admin Location Dispensed Lot Number Expiration Date [facility] Ophthalmologist Retina Specialist 380 mg IM LG 380 mg [id number] 10/09/25 51116-806-72 [employer] Comments: Pt tolerated injection well. Had some localized pain at injection site last month that resolved. No other SE or cravings reported. Pt encouraged to call with concerns/questions. Results AMB Test Urine AMB Test Urine Negative Last Edit by Ksenia Manrique CMA on 06/22/23 09:46 Coding Assessment & Plan Assessment & Plan Orders: Orders AMB Naltrexone Injection Patient Supplied Today F10.20 - Alcohol dependence, uncomplicated AMB HCG Urine Test Today Z32.01 - Encounter for test, result positive, Z32.02 - Encounter for test, result negative
[2023-06-22 09:43] VITALS: BP 114/70; PULSE 80; O2SAT 99
== END 2023-06-22 10:48 | disposition home or self-care (01) ==
PROVIDERS: PCP Internal Medicine
DX: Z32.02 Encounter for pregnancy test, result negative (principal); Z32.01 Encounter for pregnancy test, result positive; F10.20 Alcohol dependence, uncomplicated

== ENCOUNTER → 2023-06-22 09:31 | Outpatient (BNVA) | payer MEDICAID, SELFPAY | PROVIDERS: PCP Internal Medicine | DX: F10.20 Alcohol dependence, uncomplicated (principal); Z32.02 Encounter for pregnancy test, result negative | CPT/HCPCS: 81025; 96372; J2315 ==

== ENCOUNTER 2023-12-28 09:10 | Outpatient (AMB) | payer OTHER, SELFPAY ==
--- NOTE | 2023-12-28 09:15 | A.OFFVISCC_ITS ---
Intake Visit Reasons: MAT restart Allergies No Known Allergies Allergy (Verified 06/22/23 09:36) HPI HPI MAT restart: Details: Patient presents to re-establish care for AUD Last injection in March and shortly after, her father Since then she has been increasing how much and how often she is drinking Her current drinking is more episodic (every 5 days or so) 2 beers to 5 tequila sodas last drink Wednesday night cocaine use X1 opiate use X1 in April no medication changes iron, zinc vitamin c, fish oil PFSH Medical History Bipolar disorder Intentional opiate overdose MDD (major depressive disorder), recurrent episode, severe Opioid use disorder Polysubstance overdose PTSD (post-traumatic stress disorder) Social History (Updated 02/08/23 @ 14:14 by Tracy Palacio CNP) Household Members: Friend(s) Household Members Other:: 1 Housing: Apartment Alcohol intake: former Patient Tobacco Use Status: Former Tobacco user Tobacco use type: Cigarette e-Cigarette/Vaping Use: Former Use Second Hand Smoke Exposure: Yes service: No Current occupational status: employed Sexual orientation: Straight/Heterosexual Review of Systems Const Reports as per HPI and Reports malaise Physical Exam Const General: cooperative, healthy appearing, anxious and well groomed Nutritional Appearance: average body habitus Assessment & Plan Assessment & Plan (1) Alcohol use disorder, moderate, dependence: Code(s): F10.20 - Alcohol dependence, uncomplicated Category: Medical Plan: * restart naltrexone * risk reduction discussion * follow up as scheduled Medications: New thiamine HCl (vitamin B1) 100 mg PO DAILY 30 tabs 0RF folic acid 1 mg PO DAILY 30 tabs 0RF Changed From naltrexone 50 mg PO DAILY 30 days 30 tabs 0RF To naltrexone 50 mg PO DAILY 90 tabs 0RF
== END 2023-12-28 09:42 | disposition home or self-care (01) ==
PROVIDERS: PCP Internal Medicine; Visit Provider Nurse Practitioner Psychiatric/Mental Health
DX: F10.20 Alcohol dependence, uncomplicated (principal)
CPT/HCPCS: 99214

== ENCOUNTER → 2023-12-28 09:10 | Outpatient (BNVA) | payer MEDICAID, SELFPAY | PROVIDERS: PCP Internal Medicine; Visit Provider Nurse Practitioner Psychiatric/Mental Health | DX: F10.20 Alcohol dependence, uncomplicated (principal) | CPT/HCPCS: 99212 ==

== ENCOUNTER 2024-01-26 13:24 | Outpatient (AMB) | payer OTHER, SELFPAY ==
--- NOTE | 2024-01-26 13:28 | A.OFFVISCC_ITS ---
Intake Visit Reasons: MAT Follow up Allergies No Known Allergies Allergy (Verified 06/22/23 09:36) HPI HPI MAT Follow up: Details: Patient presents for AUD treatment follow taking naltrexone PO--not interested in injection last drink [id number]--cwyke out 12 of January Discussed BID dosing finds it helpful with mood as well--less irritable reviewed +gains since alcohol intake decreased or stopped PFSH Medical History Bipolar disorder Intentional opiate overdose MDD (major depressive disorder), recurrent episode, severe Opioid use disorder Polysubstance overdose PTSD (post-traumatic stress disorder) Social History (Updated 02/08/23 @ 14:14 by Tracy Palacio CNP) Household Members: Friend(s) Household Members Other:: 1 Housing: Apartment Alcohol intake: former Patient Tobacco Use Status: Former Tobacco user Tobacco use type: Cigarette e-Cigarette/Vaping Use: Former Use Second Hand Smoke Exposure: Yes service: No Current occupational status: employed Sexual orientation: Straight/Heterosexual Review of Systems Const Reports as per HPI Physical Exam Const General: cooperative, healthy appearing and well groomed Nutritional Appearance: average body habitus Orientation/consciousness: patient oriented x3 Limitations: no limitations Neuro General: patient oriented x3 Psych Appearance: well kempt Speech and movement: Clear speech present Affect: Anxious affect present Attitude: cooperative Thought process: Normal thought process present Thought content: Normal thought content present Insight: Good insight present (Psych) Judgement: Good judgement present (Psych) Assessment & Plan Assessment & Plan (1) Alcohol use disorder, moderate, dependence: Code(s): F10.20 - Alcohol dependence, uncomplicated Category: Medical Plan: * continue naltrexone 50mg QD with option to take BID * relapse prevention discussion * follow up 4 weeks
== END 2024-01-26 13:46 | disposition home or self-care (01) ==
PROVIDERS: PCP Internal Medicine; Visit Provider Nurse Practitioner Psychiatric/Mental Health
DX: F10.20 Alcohol dependence, uncomplicated (principal)
CPT/HCPCS: 99214

== ENCOUNTER → 2024-01-26 13:24 | Outpatient (BNVA) | payer OTHER, SELFPAY | PROVIDERS: PCP Internal Medicine; Visit Provider Nurse Practitioner Psychiatric/Mental Health | DX: F10.20 Alcohol dependence, uncomplicated (principal); F11.90 Opioid use, unspecified, uncomplicated | CPT/HCPCS: 99212 ==

== ENCOUNTER 2024-03-01 13:30 | Outpatient (AMB) | payer OTHER, SELFPAY ==
--- NOTE | 2024-03-01 13:45 | A.OFFVISCC_ITS ---
Intake Visit Reasons: MAT Follow up Allergies No Known Allergies Allergy (Verified 06/22/23 09:36) HPI HPI MAT Follow up: Details: Patient presents for follow up Went away this summer No alcohol or drug use Recently saw PCP will follow up in 6 months [facility] Medical History Bipolar disorder Intentional opiate overdose MDD (major depressive disorder), recurrent episode, severe Opioid use disorder Polysubstance overdose PTSD (post-traumatic stress disorder) Social History (Updated 02/08/23 @ 14:14 by Tracy Palacio CNP) Household Members: Friend(s) Household Members Other:: 1 Housing: Apartment Alcohol intake: former Patient Tobacco Use Status: Former Tobacco user Tobacco use type: Cigarette e-Cigarette/Vaping Use: Former Use Second Hand Smoke Exposure: Yes service: No Current occupational status: employed Sexual orientation: Straight/Heterosexual Review of Systems Const Reports as per HPI and Reports no additional complaints Physical Exam Const General: cooperative, healthy appearing and well groomed Nutritional Appearance: average body habitus Orientation/consciousness: patient oriented x3 Limitations: no limitations Neuro General: patient oriented x3 Psych Appearance: well kempt Speech and movement: Clear speech present Affect: Anxious affect present Attitude: cooperative Thought process: Normal thought process present Thought content: Normal thought content present Insight: Good insight present (Psych) Judgement: Good judgement present (Psych) Assessment & Plan Assessment & Plan (1) Alcohol use disorder, moderate, dependence: Code(s): F10.20 - Alcohol dependence, uncomplicated Category: Medical Plan: * continue naltrexone 50mg QD with option to take BID * relapse prevention discussion * follow up 4 weeks Medications: Refilled naltrexone 50 mg PO DAILY 90 tabs 0RF folic acid 1 mg PO DAILY 30 tabs 3RF
== END 2024-03-01 14:00 | disposition home or self-care (01) ==
PROVIDERS: PCP Internal Medicine; Visit Provider Nurse Practitioner Psychiatric/Mental Health
DX: F10.20 Alcohol dependence, uncomplicated (principal)
CPT/HCPCS: 99213

== ENCOUNTER → 2024-03-01 13:30 | Outpatient (BNVA) | payer OTHER, SELFPAY | PROVIDERS: PCP Internal Medicine; Visit Provider Nurse Practitioner Psychiatric/Mental Health | DX: F10.20 Alcohol dependence, uncomplicated (principal); Z79.899 Other long term (current) drug therapy | CPT/HCPCS: 99212 ==

== ENCOUNTER 2024-07-16 18:29 | Emergency (ER) | payer OTHER, SELFPAY ==
--- NOTE | ~2024-07-16 | CT_ITS ---
CLINICAL HISTORY: head injury CT cervical spine without contrast Comparison: None Findings: Cervical vertebral body heights maintained. No traumatic listhesis, subluxation, or dislocation demonstrated. No acute fracture identified. Intervertebral disc spaces are congruent. No significant degenerative changes. No acute prevertebral or paraspinous soft tissue finding. Visualized portions of the lung apices are clear. IMPRESSION: 1. No CT evidence of acute traumatic cervical spine injury. This document has been electronically signed by: Josemanuel Guzman MD on 07/16/2024 20:38:43
--- NOTE | ~2024-07-16 | CT_ITS ---
CLINICAL HISTORY: head injury CT head without contrast COMPARISON: None FINDINGS: No acute intracranial hemorrhage, extra-axial fluid collection, mass effect, or midline shift. Ventricular system and basilar cisterns are patent. Zheng-white matter differentiation is maintained. No gross orbital abnormality. No suspicious or acute bone lesion. Mastoid air cells and paranasal sinuses are predominantly clear. IMPRESSION: 1. No acute intracranial abnormality. This document has been electronically signed by: Josemanuel Guzman MD on 07/16/2024 20:36:25
[2024-07-16 19:16] VITALS: BP 130/91; PULSE 64; RESP 16; TEMP 36.7; O2SAT 98; BMI 22.3
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
== END 2024-07-16 23:40 | disposition left against medical advice (07) ==
PROVIDERS: Emergency Provider Internal Medicine; PCP Internal Medicine
DX: S09.90XA Unspecified injury of head, initial encounter (principal); H53.149 Visual discomfort, unspecified; M54.2 Cervicalgia; R51.9 Headache, unspecified; Y29.XXXA Contact with blunt object, undetermined intent, initial encounter; Y93.89 Activity, other specified; Y92.89 Other specified places as the place of occurrence of the external cause; Y99.0 Civilian activity done for income or pay; Z87.891 Personal history of nicotine dependence
CPT/HCPCS: 70450; 72125; 99281; 99283

== ENCOUNTER → 2024-07-16 19:19 | Outpatient (BNV) | payer OTHER, SELFPAY | PROVIDERS: PCP Internal Medicine; Visit Provider Radiology Diagnostic Radiology | DX: R51.9 Headache, unspecified (principal); R11.2 Nausea with vomiting, unspecified; H53.19 Other subjective visual disturbances; Z04.2 Encounter for examination and observation following work accident | CPT/HCPCS: 70450; 72125 ==